=== PATIENT | female | born 1950 | race Hispanic/Latino ===

== ENCOUNTER 2018-11-04 19:29 | Observation (INO) | payer MEDICARE ==
[~2018-11-04] VITALS: Ht 154.9 cm; Wt 73.9 kg
--- OUTSIDE RECORDS SUMMARY | 2018-11-04 19:32 | XMS REPORT | Summary of Care ---
Author Author [facility] [place] Organization [facility] [place] Address Unknown Phone Unavailable Encounter HQ Soledad(FIN) [id number] Date(s): 10/19/18 - 10/19/18 [facility] [place] [address] [phone] Discharge Disposition: Home or Self Care Attending Physician: Maylin Mitchell MD Referring Physician: Maylin Mitchell MD Vital Signs No data available for this section Problem List Condition Effective Dates Status Health Status Informant Diabetes Active mellitus(Confirmed) Hypertension(Confirm Active ed) Hypothyroidism(Confi Active rmed) Allergies, Adverse Reactions, Alerts No Known Medication Allergies Medications No data available for this section Results No data available for this section Immunizations No data available for this section Procedures Procedure Date Related Diagnosis Body Site Status CABG x 3 - Coronary artery bypass grafts x 3 Completed Nerve operation Completed Social History Social History Type Response Smoking Status Current every day smoker; Exposure to Tobacco Smoke self; Cigarette Smoking Last 365 Days Yes; Reg Smoking Cessation Counseling Yes entered on: 09/14/15 Assessment and Plan No data available for this section
--- OUTSIDE RECORDS SUMMARY | 2018-11-04 19:32 | XMS REPORT | Continuity of Care Document ---
Author Author [facility] Organization [facility] Address Unknown Phone Unavailable Care Team Providers Care Track Superintendent Name Role Phone uControl Information Giftly Unavailable Unavailable Problems Problem Status Onset Date Classification Date Reported Comments Source Localized edema 02/02/2018 08/17/2018 [facility] R60.0 Active 01/26/2018 [facility] Encounter for screening mammogram for malignant neoplasm of breast 05/29/2017 09/01/2017 [facility] Discharge Diagnosis: Acute cystitis without hematuria 09/14/2015 09/17/2015 [facility] Discharge Diagnosis: Benign paroxysmal vertigo, right ear 09/14/2015 09/17/2015 [facility] Discharge Diagnosis: Dehydration 09/14/2015 09/17/2015 [facility] DIZZINESS Active 09/14/2015 [facility] Diabetes mellitus (disorder) Active Problem 10/21/2018 [facility] [place],[facility] Hypertensive disorder, systemic arterial (disorder) Active Problem 10/21/2018 [facility] [place],[facility] Hypothyroidism (disorder) Active Problem 10/21/2018 [facility] LOCALIZED EDEMA Active [facility] Medications Medication Details Route Status Patient Instructions Ordering Provider Order Date Source Sulfamethoxazole 800 MG / Trimethoprim 160 MG Oral Tablet [Bactrim] 1 tab, PO, BID, for UTI, X 3 day, # 6 tab, 0 Refill(s) Active 09/15/2015 [facility] meclizine 25 mg oral tablet 25 mg=1 tab, PO, TID, PRN dizziness, X 10 day, # 30 tab, 0 Refill(s) Active 09/15/2015 [facility] Saline Flush 0.9% 10 mL, Route: IVP, Drug Form: INJ, Dosing Weight 81.818, kg, PRN, PRN Line Flush, Start date: 09/14/15 17:00:00 CDT, Duration: 30 day, Stop date: 10/14/15 16:59:00 CDTNotes: (Same as: BD Posiflush) Inactive 09/14/2015 [facility] Allergies, Adverse Reactions, Alerts Substance Category Reaction Severity Reaction type Status Date Reported Comments Source No Known Medication Allergies Assertion Drug allergy [facility] [place] Immunizations No Data Provided for This Section Results Order Name Results Value Reference Range Date Interpretation Comments Source URINE AND STOOL UA Bacteria Occasional /HPF None Seen /HPF 09/15/2015 [facility] URINE AND STOOL UA Hyal Cast 2 0 - 2 09/15/2015 [facility] URINE AND STOOL UA Nitrite Negative (09/14/15 7:32 PM) Negative 09/15/2015 [facility] URINE AND STOOL UA Leuk Est Large *ABN* (09/14/15 7:32 PM) Negative 09/15/2015 [facility] URINE AND STOOL UA Sq Epi Occasional /LPF Few /LPF 09/15/2015 [facility] URINE AND STOOL UA WBC 11 0 - 5 09/15/2015 [facility] URINE AND STOOL UA RBC 7 0 - 2 09/15/2015 [facility] URINE AND STOOL UA Turbidity Slight *ABN* (09/14/15 7:32 PM) Clear 09/15/2015 [facility] URINE AND STOOL UA Spec Grav 1.016 <=1.030 09/15/2015 [facility] URINE AND STOOL UA Color Yellow *NA* (09/14/15 7:32 PM) Yellow 09/15/2015 [facility] URINE AND STOOL UA Urobilinogen 2.0 0.1 - 1.0 09/15/2015 [facility] URINE AND STOOL UA Bili Negative *NA* (09/14/15 7:32 PM) Negative 09/15/2015 [facility] URINE AND STOOL UA Blood Negative (09/14/15 7:32 PM) Negative 09/15/2015 [facility] URINE AND STOOL UA Ketones Negative mg/dL Negative mg/dL 09/15/2015 [facility] URINE AND STOOL UA Glucose Negative mg/dL Negative mg/dL 09/15/2015 [facility] URINE AND STOOL UA Protein Negative mg/dL Negative mg/dL 09/15/2015 [facility] URINE AND STOOL UA pH 5.0 5.0 - 8.0 09/15/2015 [facility] CARDIAC ENZYMES CK MB Index 1.5 0.0 - 2.5 09/14/2015 [facility] CARDIAC ENZYMES Troponin-I <0.02 0.00 - 0.40 09/14/2015 [facility] CARDIAC ENZYMES Total CK 96 12 - 191 09/14/2015 [facility] CARDIAC ENZYMES CK MB 1.4 0.5 - 3.6 09/14/2015 [facility] CHEM PANEL ALT 25 0 - 65 09/14/2015 [facility] CHEM PANEL AST 19 0 - 37 09/14/2015 [facility] CHEM PANEL Globulin 3.4 2.0 - 4.0 09/14/2015 [facility] CHEM PANEL AGAP 12.5 10.0 - 20.0 09/14/2015 [facility] CHEM PANEL B/C Ratio 25 6 - 25 09/14/2015 [facility] CHEM PANEL Bili Total 0.4 0.2 - 1.3 09/14/2015 [facility] CHEM PANEL A/G Ratio 1.1 0.7 - 1.6 09/14/2015 [facility] CHEM PANEL eGFR 36 09/14/2015 Result Comment: The eGFR is calculated using the CKD-EPI formula. In most young, healthy individuals the eGFR will be >90 mL/min/1.73m2. The eGFR declines with age. An eGFR of 60-89 may be normal in some populations, particularly the elderly, for whom the CKD-EPI formula has not been extensively validated. Use of the eGFR is not recommended in the following populations:

Individuals with unstable creatinine concentrations, including patients and those with serious co-morbid conditions.

Patients with extremes in muscle mass or diet.

The data above are obtained from the National Kidney Disease Education Program (NKDEP) which additionally recommends that when the eGFR is used in patients with extremes of body mass index for purposes of drug dosing, the eGFR should be multiplied by the estimated BMI. [facility] CHEM PANEL Albumin Lvl 3.6 3.5 - 5.0 09/14/2015 [facility] CHEM PANEL Alk Phos 133 39 - 136 09/14/2015 [facility] CHEM PANEL Total Protein 7.0 6.4 - 8.4 09/14/2015 [facility] CHEM PANEL BUN 37 7 - 22 09/14/2015 [facility] CHEM PANEL Potassium Lvl 3.5 3.5 - 5.1 09/14/2015 [facility] CHEM PANEL Chloride Lvl 106 95 - 109 09/14/2015 [facility] CHEM PANEL Creatinine Lvl 1.50 0.50 - 1.40 09/14/2015 [facility] CHEM PANEL Sodium Lvl 140 135 - 145 09/14/2015 [facility] CHEM PANEL CO2 25 24 - 32 09/14/2015 [facility] CHEM PANEL Calcium Lvl 8.6 8.5 - 10.5 09/14/2015 [facility] CHEM PANEL Glucose Lvl 110 70 - 99 09/14/2015 [facility] HEMATOLOGY Eosinophils # 0.1 0.0 - 0.5 09/14/2015 [facility] HEMATOLOGY Lymphocytes # 2.8 1.0 - 5.5 09/14/2015 [facility] HEMATOLOGY Monocytes # 0.7 0.0 - 0.8 09/14/2015 [facility] HEMATOLOGY Segs-Bands # 5.7 1.5 - 8.1 09/14/2015 [facility] HEMATOLOGY Basophils 0.4 0.0 - 1.0 09/14/2015 [facility] HEMATOLOGY Monocytes 7.9 2.0 - 12.0 09/14/2015 [facility] HEMATOLOGY Eosinophils 1.3 0.0 - 4.0 09/14/2015 [facility] HEMATOLOGY Lymphocytes 30.0 20.0 - 40.0 09/14/2015 [facility] HEMATOLOGY Segs 60.4 45.0 - 75.0 09/14/2015 [facility] HEMATOLOGY PTT 30.3 22.9 - 35.8 09/14/2015 [facility] HEMATOLOGY MPV 9.3 7.4 - 10.4 09/14/2015 [facility] HEMATOLOGY MCV 88.0 80.0 - 98.0 09/14/2015 [facility] HEMATOLOGY MCH 29.1 27.0 - 31.0 09/14/2015 [facility] HEMATOLOGY Platelet 234 133 - 450 09/14/2015 [facility] MCHC 33.1 32.0 - 36.0 09/14/2015 [facility] HEMATOLOGY RDW 14.4 11.5 - 14.5 09/14/2015 [facility] HEMATOLOGY WBC 9.4 3.7 - 10.4 09/14/2015 [facility] HEMATOLOGY Hgb 13.4 12.0 - 16.0 09/14/2015 [facility] HEMATOLOGY Hct 40.5 36.0 - 48.0 09/14/2015 [facility] HEMATOLOGY RBC 4.60 4.20 - 5.40 09/14/2015 [facility] HEMATOLOGY PT 14.6 12.0 - 14.7 09/14/2015 [facility] HEMATOLOGY INR 1.11 0.85 - 1.17 09/14/2015 [facility] Pathology Reports No Data Provided for This Section Diagnostic Reports Report Value Date Source Ext Lower Arterial bilat w pressure US PROCEDURE: Bilateral lower extremity arterial doppler. INDICATION: R60.0 localized edema. Lower extremity pain, left greater than right. Current history of smoking. Hypertension, diabetes, myocardial infarct, hyperlipidemia, CABG COMPARISON: None. FINDINGS: RIGHT: Common femoral: Triphasic. Superficial femoral: Triphasic. Popliteal: Triphasic. Posterior tibial: Triphasic. Dorsalis pedis: Triphasic. Pulsatile arterial Doppler waveform identified in the right great toe. LEFT: Common femoral: Triphasic. Superficial femoral: Triphasic. Popliteal: Triphasic. Posterior tibial: Triphasic. Dorsalis pedis: Triphasic. Very low amplitude pulsatile arterial waveform identified in the left great toe. Right ankle/brachial index: 1.0. Left ankle/brachial index: 1.0. IMPRESSION: 1. Low amplitude pulsatile arterial waveform in the left great toe. Possible small vessel distal peripheral vascular disease within the left great toe. 2. Otherwise, no evidence for hemodynamically significant peripheral vascular disease. SL: [id number] 01/27/2018 [facility] Breast Mammo Scrn LARISSA incl CAD MA BILATERAL DIGITAL SCREENING MAMMOGRAM WITH CAD: 05/26/2017 CLINICAL: Routine/Z12.31. Current study was evaluated with a Computer Aided Detection (CAD) system. COMPARISON:No prior exams were available for comparison. TECHNIQUE: Mammographic views were obtained using digital acquisition. Current study was also evaluated with a Computer Aided Detection (CAD) system. FINDINGS: There are scattered fibroglandular densities in both breasts. Bilateral post-reduction changes are noted. There are benign appearing calcifications in both breasts. No significant masses, calcifications, or other findings are seen in either breast. IMPRESSION: BENIGN RECOMMENDATION:There is no mammographic evidence of malignancy. A 1 year screening mammogram is recommended.(05/27/2018) This exam was interpreted at [id number] for DALIA Bowman 15. Professional services are provided by the [facility]. Jamar villanueva/rolanda:05/26/2017 14:14:49 Housemaid(s): RT Justus(R)(M), [facility] letter sent: BI-RADS 1/2 Mammogram BI-RADS: 2 Benign 05/26/2017 [facility] [place] Chest 1view DX Study: Chest 1view DX 09/14/2015 5:00 PM CDT Patient Name: SERVANDO GIANG MR: [id number] : 1950; Age: 65 years y/o Female Ordering Physician: Virginia Moseley Clinical Indication: Syncope. Dizziness. Comparison: None FINDINGS LUNGS: The hyperinflated lungs are clear consolidation, pleural effusion, and pneumothorax. HEART AND MEDIASTINUM: Heart size near upper limits of normal status post median sternotomy. LINES: None. OSSEOUS STRUCTURES: No fracture, dislocation, or suspicious focal osseous lesion. Cervical fusion. OTHER: None. IMPRESSION: 1. No acute abnormality as above discussed. SL: TPAINTER-PC 09/14/2015 [facility] Consultation Notes No Data Provided for This Section Discharge Summaries No Data Provided for This Section History and Physicals No Data Provided for This Section Vital Signs Vital Sign Value Date Comments Source Systolic (mm Hg) 148 09/15/2015 [facility] Diastolic (mm Hg) 53 09/15/2015 [facility] Temperature Oral (F) 98 F 09/15/2015 [facility] Respitory Rate 18 09/15/2015 [facility] Systolic (mm Hg) 102 09/14/2015 [facility] Diastolic (mm Hg) 37 09/14/2015 [facility] Respitory Rate 16 09/14/2015 [facility] Systolic (mm Hg) 102 09/14/2015 [facility] Diastolic (mm Hg) 68 09/14/2015 [facility] Respitory Rate 20 09/14/2015 [facility] Heart Rate 71 09/14/2015 [facility] Weight 81.818 09/14/2015 [facility] BMI Calculated 34.08 09/14/2015 [facility] Height 154.94 cm 09/14/2015 [facility] Temperature Oral (F) 97.6 F 09/14/2015 [facility] Encounters Location Location Details Encounter Type Encounter Number Reason For Visit Attending Provider ADM Date DC Date Status Source [facility] [id number] Rich Marinelli 09/14/2015 09/15/2015 [facility] [place] [facility] [id number] Maylin Almodovar 05/26/2017 05/27/2017 [facility] [id number] Maylin Mitchell 01/27/2018 01/28/2018 [facility] [place] Out[facility] D[facility] [id number] Maylin Mitchell 10/19/2018 10/20/2018 BOYD Floyd Procedures Procedure Code Date Perfomer Comments Source CABG x 3 - Coronary artery bypass grafts x 3 [id number] BOYD Graves, BOYD Floyd,[facility] Nerve operation [id number] BOYD Graves, BOYD Floyd,[facility] Assessment and Plan No Data Provided for This Section Plan of Care No Data Provided for This Section Social History Social History Date Source Social History TypeResponse Smoking Status Current every day smoker; Exposure to Tobacco Smoke self; Cigarette Smoking Last 365 Days Yes; Reg Smoking Cessation Counseling Yes entered on: 09/14/15 09/14/2015 [facility] Social History TypeResponse Smoking Status Current every day smoker; Exposure to Tobacco Smoke self; Cigarette Smoking Last 365 Days Yes; Reg Smoking Cessation Counseling Yes entered on: 09/14/15 09/14/2015 BOYD Graves Social History TypeResponse Smoking Status Current every day smoker; Exposure to Tobacco Smoke self; Cigarette Smoking Last 365 Days Yes; Reg Smoking Cessation Counseling Yes entered on: 09/14/15 09/14/2015 BOYD Floyd Family History No Data Provided for This Section Advance Directives No Data Provided for This Section Functional Status No Data Provided for This Section
--- OUTSIDE RECORDS SUMMARY | 2018-11-04 19:32 | XMS REPORT | Summary of Care ---
Author Author [facility] [place] [place] Address Unknown Phone Unavailable Encounter HQ Deidre_cassi(FIN) [id number] Date(s): 05/26/17 - 05/26/17 [facility] Outpatient Imaging [place] [address] [place], [place] [address]- [phone] Encounter Diagnosis Encounter for screening mammogram for malignant neoplasm of breast (Final) - 05/28/17 Discharge Disposition: Home or Self Care Attending Physician: Maylin Almodovar MD Vital Signs No data available for this section Problem List Condition Effective Dates Status Health Status Informant Diabetes Active mellitus(Confirmed) Hypertension(Confirm Active ed) Hypothyroidism(Confi Active rmed) Allergies, Adverse Reactions, Alerts Substance Reaction Severity Status NKDA Active Medications No data available for this section [...]
--- OUTSIDE RECORDS SUMMARY | 2018-11-04 19:32 | XMS REPORT | Summary of Care ---
Author Author [facility] Organization [facility] Address Unknown Phone Unavailable Encounter SILVANA Rowe(KIMBERLY) [id number] Date(s): 09/14/15 - 09/14/15 [facility] [address] [place] [address]- Discharge Diagnosis: Acute cystitis without hematuria Discharge Diagnosis: Benign paroxysmal vertigo, right ear Discharge Diagnosis: Dehydration Discharge Disposition: Home Attending Physician: Rich Marinelli MD PHD Vital Signs 1 2 3 Most recent to oldest [Reference Range]: 154.94 cm (09/14/15 4:50 PM) Height 98 DegF (09/14/15 8:00 PM) 97.6 DegF (09/14/15 4:50 PM) Temperature Oral [96.4-99.1 DegF] 148/53 mmHg *HI* (09/14/15 8:00 PM) 102/37 mmHg (09/14/15 6:50 PM) 102/68 mmHg (09/14/15 5:30 PM) Blood Pressure [90-140/60-90 mmHg] 18 BRMIN (09/14/15 8:00 PM) 16 BRMIN (09/14/15 6:50 PM) 20 BRMIN (09/14/15 5:30 PM) Respiratory Rate [14-20 BRMIN] 71 bpm (09/14/15 4:50 PM) Peripheral Pulse Rate [60-100 bpm] 81.818 kg (09/14/15 4:50 PM) Weight 34.08 m2 (09/14/15 4:50 PM) Body Mass Index Problem List Condition Effective Dates Status Health Status Informant Diabetes Active mellitus(Confirmed) Hypertension(Confirm Active ed) Hypothyroidism(Confi Active rmed) Allergies, Adverse Reactions, Alerts Substance Reaction Severity Status NKDA Active Medications Bactrim DS 800 mg- 160 mg oral tablet 1 tab, PO, BID, for UTI, X 3 day, # 6 tab, 0 Refill(s) Start Date: 09/14/15 Stop Date: 09/17/15 Status: Ordered meclizine 25 mg oral tablet 25 mg=1 tab, PO, TID, PRN dizziness, X 10 day, # 30 tab, 0 Refill(s) Start Date: 09/14/15 Stop Date: 09/24/15 Status: Ordered Saline Flush 0.9% 10 mL, Route: IVP, Drug Form: INJ, Dosing Weight 81.818, kg, PRN, PRN Line Flush , Start date: 09/14/15 17:00:00 CDT, Duration: 30 day, Stop date: 10/14/15 16:59 :00 CDT Notes: (Same as: BD Posiflush) Start Date: 09/14/15 Stop Date: 09/14/15 Status: Discontinued Results ELECTROLYTES Most recent to 1 oldest [Reference Range]: Sodium Lvl [135-145 140 mEq/L mEq/L] (09/14/15 5:35 PM) Potassium Lvl 3.5 mEq/L [3.5-5.1 mEq/L] (09/14/15 5:35 PM) Chloride Lvl [95-109 106 mEq/L mEq/L] (09/14/15 5:35 PM) CO2 [24-32 mEq/L] 25 mEq/L (09/14/15 5:35 PM) AGAP [10.0-20.0 12.5 mEq/L mEq/L] (09/14/15 5:35 PM) CHEM PANEL Most recent to 1 oldest [Reference Range]: Creatinine Lvl 1.50 mg/dL [0.50-1.40 mg/dL] *HI* (09/14/15 5:35 PM) eGFR 36 mL/min/1.73m2 1 *NA* (09/14/15 5:35 PM) BUN [7-22 mg/dL] 37 mg/dL *HI* (09/14/15 5:35 PM) B/C Ratio [6-25] 25 (09/14/15 5:35 PM) Glucose Lvl [70-99 110 mg/dL mg/dL] *HI* (09/14/15 5:35 PM) Total Protein 7.0 g/dL [6.4-8.4 g/dL] (09/14/15 5:35 PM) Albumin Lvl [3.5-5.0 3.6 g/dL g/dL] (09/14/15 5:35 PM) Globulin [2.0-4.0 3.4 g/dL g/dL] (09/14/15 5:35 PM) A/G Ratio [0.7-1.6] 1.1 (09/14/15 5:35 PM) Calcium Lvl 8.6 mg/dL [8.5-10.5 mg/dL] (09/14/15 5:35 PM) ALT [0-65 unit/L] 25 unit/L (09/14/15 5:35 PM) AST [0-37 unit/L] 19 unit/L (09/14/15 5:35 PM) Alk Phos [39-136 133 unit/L unit/L] (09/14/15 5:35 PM) Bili Total [0.2-1.3 0.4 mg/dL mg/dL] (09/14/15 5:35 PM) 1Result Comment: The eGFR is calculated using the [...] from the National Kidney Disease Education Program ( NKDEP) which additionally recommends that when the eGFR is used in patients with extremes of body mass index for purposes of drug dosing, the eGFR should be mul tiplied by the estimated BMI. CARDIAC ENZYMES Most recent to 1 oldest [Reference Range]: Total CK [12-191 96 unit/L unit/L] (09/14/15 5:35 PM) CK MB [0.5-3.6 1.4 ng/mL ng/mL] (09/14/15 5:35 PM) CK MB Index 1.5 [0.0-2.5] (09/14/15 5:35 PM) Troponin-I <0.02 ng/mL [0.00-0.40 ng/mL] (09/14/15 5:35 PM) URINE AND STOOL Most recent to 1 oldest [Reference Range]: UA Turbidity [Clear] Slight *ABN* (09/14/15 7:32 PM) UA Color [Yellow] Yellow *NA* (09/14/15 7:32 PM) UA pH [5.0-8.0] 5.0 (09/14/15 7:32 PM) UA Spec Grav 1.016 [<=1.030] (09/14/15 7:32 PM) UA Glucose [Negative Negative mg/dL mg/dL] *NA* (09/14/15 7:32 PM) UA Blood [Negative] Negative (09/14/15 7:32 PM) UA Ketones [Negative Negative mg/dL mg/dL] *NA* (09/14/15 7:32 PM) UA Protein [Negative Negative mg/dL mg/dL] (09/14/15 7:32 PM) UA Urobilinogen 2.0 mg/dL [0.1-1.0 mg/dL] *HI* (09/14/15 7:32 PM) UA Bili [Negative] Negative *NA* (09/14/15 7:32 PM) UA Leuk Est Large [Negative] *ABN* (09/14/15 7:32 PM) UA Nitrite Negative [Negative] (09/14/15 7:32 PM) UA WBC [0-5 /HPF] 11 /HPF *HI* (09/14/15 7:32 PM) UA RBC [0-2 /HPF] 7 /HPF *HI* (09/14/15 7:32 PM) UA Bacteria [None Occasional /HPF Seen /HPF] *NA* (09/14/15 7:32 PM) UA Sq Epi [Few /LPF] Occasional /LPF *NA* (09/14/15 7:32 PM) UA Hyal Cast [0-2 2 /LPF /LPF] (09/14/15 7:32 PM) HEMATOLOGY Most recent to 1 oldest [Reference Range]: WBC [3.7-10.4 K/CMM] 9.4 K/CMM (09/14/15 5:35 PM) RBC [4.20-5.40 4.60 M/CMM M/CMM] (09/14/15 5:35 PM) Hgb [12.0-16.0 g/dL] 13.4 g/dL (09/14/15 5:35 PM) Hct [36.0-48.0 %] 40.5 % (09/14/15 5:35 PM) MCV [80.0-98.0 fL] 88.0 fL (09/14/15 5:35 PM) MCH [27.0-31.0 pg] 29.1 pg (09/14/15 5:35 PM) MCHC [32.0-36.0 33.1 g/dL g/dL] (09/14/15 5:35 PM) RDW [11.5-14.5 %] 14.4 % (09/14/15 5:35 PM) Platelet [133-450 234 K/CMM K/CMM] (09/14/15 5:35 PM) MPV [7.4-10.4 fL] 9.3 fL (09/14/15 5:35 PM) Segs [45.0-75.0 %] 60.4 % (09/14/15 5:35 PM) Lymphocytes 30.0 % [20.0-40.0 %] (09/14/15 5:35 PM) Monocytes [2.0-12.0 7.9 % %] (09/14/15 5:35 PM) Eosinophils [0.0-4.0 1.3 % %] (09/14/15 5:35 PM) Basophils [0.0-1.0 0.4 % %] (09/14/15 5:35 PM) Segs-Bands # 5.7 K/CMM [1.5-8.1 K/CMM] (09/14/15 5:35 PM) Lymphocytes # 2.8 K/CMM [1.0-5.5 K/CMM] (09/14/15 5:35 PM) Monocytes # [0.0-0.8 0.7 K/CMM K/CMM] (09/14/15 5:35 PM) Eosinophils # 0.1 K/CMM [0.0-0.5 K/CMM] (09/14/15 5:35 PM) PT [12.0-14.7 14.6 seconds seconds] (09/14/15 5:35 PM) INR [0.85-1.17] 1.11 (09/14/15 5:35 PM) PTT [22.9-35.8 30.3 seconds seconds] (09/14/15 5:35 PM) Immunizations No data available for this section Procedures Procedure Date Related Diagnosis Body Site CABG x 3 - Coronary artery bypass grafts x 3 Nerve operation Social History Social History Type Response Smoking Status Never smoker; Exposure to Tobacco Smoke None; Cigarette Smoking Last 365 Days No; Reg Smoking Cessation Counseling No Assessment and Plan No data available for this section
--- OUTSIDE RECORDS SUMMARY | 2018-11-04 19:32 | XMS REPORT | Summary of Care ---
Author Author [facility] Organization [facility] Address Unknown Phone Unavailable Encounter HQ Deidre_cassi(FIN) [phone] Date(s): 01/27/18 - 01/27/18 [facility] [address] [place] [address]- [phone] Encounter Diagnosis Localized edema (Final) - 02/01/18 Discharge Disposition: Home or Self Care Attending Physician: Maylin Mitchell MD Admitting Physician: Maylin Mitchell MD Referring Physician: Maylin [...]
[2018-11-04] MEDS ORDERED: SODIUM CHLORIDE 0.9% 1000ML 1,000 ML IV STA (19:44)
[2018-11-04] MEDS ORDERED: FAMOTIDINE 20 MG/2 ML VIAL IV ONE (19:45)
[2018-11-04] MEDS ORDERED: ONDANSETRON HCL INJ 2MG/ML 2ML 2 MG/ML VIAL IV ONE (19:45)
[2018-11-04] MEDS ORDERED: SODIUM CHLORIDE 0.9% 1000ML 1,000 ML ONE (19:51)
[2018-11-04] MEDS ORDERED: SODIUM CHLORIDE 0.9% 50ML 0 ML ONE (20:05)
[2018-11-04] MEDS ORDERED: IOPAMIDOL 370 MG/ML 200 ML INFUS..BTL INJ ONE (20:06)
--- NOTE | 2018-11-04 21:24 | Diagnostic Imaging Report ---
EXAM: CT Abdomen and Pelvis WITHOUT contrast INDICATION: Abdominal pain, nausea, vomiting COMPARISON: None. TECHNIQUE: Abdomen and pelvis were scanned utilizing a multidetector helical scanner from the lung base to the pubic symphysis without administration of IV contrast. Absence of intravenous contrast decreases sensitivity for detection of focal lesions and vascular pathology. Coronal and sagittal reformations were obtained. Routine protocol was performed. IV CONTRAST: None ORAL CONTRAST: None COMPLICATIONS: None RADIATION DOSE: Total DLP: 736 mGy*cm Estimated effective dose: (DLP x 0.015 x size factor) mSv CTDIvol has been reviewed. It is below the limits set by the Radiation Protocol Committee (RPC). Dose modulation, iterative reconstruction, and/or weight based adjustment of the mA/kV was utilized to reduce the radiation dose to as low as reasonably achievable. FINDINGS: LINES and TUBES: None. LOWER THORAX: Left coronary artery calcifications. HEPATOBILIARY: No focal hepatic lesions. No biliary ductal dilation. GALLBLADDER: No radio-opaque stones or sludge. No wall thickening. SPLEEN: No splenomegaly. PANCREAS: No focal masses or ductal dilatation. ADRENALS: No adrenal nodules KIDNEYS/URETERS: No hydronephrosis. There are 2 round cystic lesions in the right kidney, one in the interpolar parenchyma measures 3 cm, the other in the inferior pole parenchyma in measures 1.5 cm. No stones. GI TRACT: No abnormal distention, wall thickening, or evidence of bowel obstruction. Appendix is normal. PELVIC ORGANS/BLADDER: Unremarkable. LYMPH NODES: No lymphadenopathy. VESSELS: There is mild atherosclerotic disease in the aorta and major arterial branches. PERITONEUM / RETROPERITONEUM: No free air or fluid. BONES: Unremarkable. SOFT TISSUES: Unremarkable. IMPRESSION: 1. Two round cystic lesions measure up to 3 mm in the right kidney, incompletely characterized on this noncontrast CT. A nonemergent renal ultrasound could further characterize these findings. 2. Left coronary artery calcific atherosclerosis. Signed by: Tyrone Gama DO on 11/04/2018 9:21 PM
[2018-11-04] MEDS ORDERED: MORPHINE SULFATE 2 MG/ML SYR 1ML IV PRN (21:30)
[2018-11-04] MEDS ORDERED: ZOLPIDEM TARTRATE 5 MG TAB PO PRN (21:30)
[2018-11-04] MEDS ORDERED: ONDANSETRON HCL INJ 2MG/ML 2ML 2 MG/ML VIAL IV PRN (21:30)
--- OUTSIDE RECORDS SUMMARY | 2018-11-04 21:47 | XMS REPORT ---
Author Author [facility] Address Unknown Phone Unavailable Care Team Providers Care Radio Television Announcer Name Role Phone Shankar NORWODO Unavailable Unavailable Problems This patient has no known problems. Allergies, Adverse Reactions, Alerts This patient has no known allergies or adverse reactions. Medications This patient has no known medications. Results Test Description Test Time Test Comments Text Results Atomic Results Result Comments CT ABD/PEL WO CONTRAST-HOPD 2018-11-04 21:04:00 [place] [address] Patient Name: SERVANDO GIANG MR #: [id number] : 1950 Age/Sex: 68/F Req #: [id number] Adm Physician: Ordered by: SAE NORWOOD MD Report #: [id number] Location: [facility] Room/Bed: Procedure: [id number] HOPD/CT ABD/PEL WO CONTRAST-HOPD Exam Date: 11/04/18 Exam Time: 2029 REPORT STATUS: Signed EXAM: CT Abdomen and Pelvis WITHOUT contrast INDICATION: Abdominal pain, nausea, vomiting COMPARISON: None. TECHNIQUE: Abdomen and pelvis were scanned utilizing a multidetector helical scanner from the lung base to the pubic symphysis without administration of IV contrast. Absence of intravenous contrast decreases sensitivity for detection of focal lesions and vascular pathology. Coronal and sagittal reformations were obtain ed. Routine protocol was performed. IV CONTRAST: None ORAL CONTRAST: None COMPLICATIONS: None RADIATION DOSE: Total DLP: 736 mGy*cm Estimated effective dose: (DLP x 0.015 x size factor) mSv CTDIvol has been reviewed. It is below the limits set by the Radiation Protocol Committee (RPC). Dose modulation, iterative reconstruction, and/or weight based adjustment of the mA/kV was utilized to reduce the radiation dose to as low as reasonably achievable. FINDINGS: LINES and TUBES: None. LOWER THORAX: Left coronary artery calcifications. HEPATOBILIARY: No focal hepatic lesions. No biliary ductal dilation. GALLBLADDER: No radio-opaque stones or sludge. No wall thickening. SPLEEN: No splenomegaly. PANCREAS: No focal masses or ductal dilatation. ADRENALS: No adrenal nodules KIDNEYS/URETERS: No hydronephrosis. There are 2 round cystic lesions in the right kidney, one in the interpolar parenchyma measures 3 cm, the other in the inferior pole parenchyma in measures 1.5 cm. No stones. GI TRACT: No abnormal distention, wall thickening, or evidence of bowel obstruction. Appendix is normal. PELVIC ORGANS/BLADDER: Unremarkable. LYMPH NODES: No lymphadenopathy. VESSELS: There is mild atherosclerotic disease in the aorta and major arterial branches. PERITONEUM / RETROPERITONEUM: No free air or fluid. BONES: Unremarkable. SOFT TISSUES: Unremarkable. IMPRESSION: 1. Two round cystic lesions measure up to 3 mm in th e right kidney, incompletely characterized on this noncontrast CT. A nonemergent renal ultrasound could further characterize these findings. 2. Left coronary artery calcific atherosclerosis. Signed by: Tyrone Gama DO on 11/04/2018 9:21 PM Dictated By: TYRONE GAMA DO 20 Transcribed By: SUNSHINE on 11/04/182120 COPY TO: SAE NORWOOD MD
--- OUTSIDE RECORDS SUMMARY | 2018-11-04 21:47 | XMS REPORT | Continuity of Care Document ---
Author Author [facility] Organization [facility] Address Unknown Phone Unavailable Care Team Providers Care Field Coordinator Name Role Phone [employer] Information [employer] Unavailable Unavailable Problems Problem Status Onset Date Classification Date Reported Comments Source Localized edema 02/02/2018 08/17/2018 [facility] R60.0 Active 01/26/2018 [facility] Encounter for screening mammogram for malignant neoplasm of breast 05/29/2017 09/01/2017 [facility] Discharge Diagnosis: Acute cystitis without hematuria 09/14/2015 09/17/2015 [facility] Discharge Diagnosis: Benign paroxysmal vertigo, right ear 09/14/2015 09/17/2015 [facility] Discharge Diagnosis: Dehydration 09/14/2015 09/17/2015 [facility] DIZZINESS Active 09/14/2015 [facility] Diabetes mellitus (disorder) Active Problem [facility] [place] [place] Hypertensive disorder, systemic arterial (disorder) Active Problem 10/21/2018 [facility] [place],[facility] Hypothyroidism (disorder) Active Problem 10/21/2018 [facility] LOCALIZED EDEMA Active [facility] Medications Medication Details Route Status Patient Instructions Ordering Provider Order Date Source Sulfamethoxazole 800 MG / Trimethoprim 160 MG Oral Tablet [Bactrim] 1 tab, PO, BID, for UTI, X 3 day, # 6 tab, 0 Refill(s) Active 09/15/2015 [facility] meclizine 25 mg oral tablet 25 mg=1 tab, PO, TID, PRN dizziness, X 10 day, # 30 tab, 0 Refill(s) Active 09/15/2015 [facility] Saline Flush 0.9% 10 mL, Route: IVP, Drug Form: INJ, Dosing Weight 81.818, kg, PRN, PRN Line Flush, Start date: 09/14/15 17:00:00 CDT, Duration: 30 day, Stop date: 10/14/15 16:59:00 CDTNotes: (Same as: BD Posiflush) Inactive 09/14/2015 [facility] Allergies, Adverse Reactions, Alerts Substance Category Reaction Severity Reaction type Status Date Reported Comments Source No Known Medication Allergies Assertion Drug allergy [facility] [place] Immunizations No Data Provided for This Section Results Order Name Results Value Reference Range Date Interpretation Comments Source URINE AND STOOL UA Bacteria Occasional /HPF None Seen /HPF 09/15/2015 [facility] URINE AND STOOL UA Hyal Cast 2 0 - 2 09/15/2015 [facility] URINE AND STOOL UA Nitrite Negative (09/14/15 7:32 PM) Negative 09/15/2015 [facility] URINE AND STOOL UA Leuk Est Large *ABN* (09/14/15 7:32 PM) Negative 09/15/2015 [facility] URINE AND STOOL UA Sq Epi Occasional /LPF Few /LPF 09/15/2015 [facility] URINE AND STOOL UA WBC 11 0 - 5 09/15/2015 [facility] URINE AND STOOL UA RBC 7 0 - 2 09/15/2015 [facility] URINE AND STOOL UA Turbidity Slight *ABN* (09/14/15 7:32 PM) Clear 09/15/2015 [facility] URINE AND STOOL UA Spec Grav 1.016 <=1.030 09/15/2015 [facility] URINE AND STOOL UA Color Yellow *NA* (09/14/15 7:32 PM) Yellow 09/15/2015 [facility] URINE AND STOOL UA Urobilinogen 2.0 0.1 - 1.0 09/15/2015 [facility] URINE AND STOOL UA Bili Negative *NA* (09/14/15 7:32 PM) Negative 09/15/2015 [facility] URINE AND STOOL UA Blood Negative (09/14/15 7:32 PM) Negative 09/15/2015 [facility] URINE AND STOOL UA Ketones Negative mg/dL Negative mg/dL 09/15/2015 [facility] URINE AND STOOL UA Glucose Negative mg/dL Negative mg/dL 09/15/2015 [facility] URINE AND STOOL UA Protein Negative mg/dL Negative mg/dL 09/15/2015 [facility] URINE AND STOOL UA pH 5.0 5.0 - 8.0 09/15/2015 [facility] CARDIAC ENZYMES CK MB Index 1.5 0.0 - 2.5 09/14/2015 [facility] CARDIAC ENZYMES Troponin-I <0.02 0.00 - 0.40 09/14/2015 [facility] CARDIAC ENZYMES Total CK 96 12 - 191 09/14/2015 [facility] CARDIAC ENZYMES CK MB 1.4 0.5 - 3.6 09/14/2015 [facility] CHEM PANEL ALT 25 0 - 65 09/14/2015 [facility] CHEM PANEL AST 19 0 - 37 09/14/2015 [facility] CHEM PANEL Globulin 3.4 2.0 - 4.0 09/14/2015 [facility] CHEM PANEL AGAP 12.5 10.0 - 20.0 09/14/2015 [facility] CHEM PANEL B/C Ratio 25 6 - 25 09/14/2015 [facility] CHEM PANEL Bili Total 0.4 0.2 - 1.3 09/14/2015 [facility] CHEM PANEL A/G Ratio 1.1 0.7 - 1.6 09/14/2015 [facility] CHEM PANEL eGFR 36 09/14/2015 Result [...] should be multiplied by the estimated BMI. [facility] CHEM PANEL Albumin Lvl 3.6 3.5 - 5.0 09/14/2015 [facility] CHEM PANEL Alk Phos 133 39 - 136 09/14/2015 [facility] CHEM PANEL Total Protein 7.0 6.4 - 8.4 09/14/2015 [facility] CHEM PANEL BUN 37 7 - 22 09/14/2015 [facility] CHEM PANEL Potassium Lvl 3.5 3.5 - 5.1 09/14/2015 [facility] CHEM PANEL Chloride Lvl 106 95 - 109 09/14/2015 [facility] CHEM PANEL Creatinine Lvl 1.50 0.50 - 1.40 09/14/2015 [facility] CHEM PANEL Sodium Lvl 140 135 - 145 09/14/2015 [facility] CHEM PANEL CO2 25 24 - 32 09/14/2015 [facility] CHEM PANEL Calcium Lvl 8.6 8.5 - 10.5 09/14/2015 [facility] CHEM PANEL Glucose Lvl 110 70 - 99 09/14/2015 [facility] HEMATOLOGY Eosinophils # 0.1 0.0 - 0.5 09/14/2015 [facility] HEMATOLOGY Lymphocytes # 2.8 1.0 - 5.5 09/14/2015 [facility] HEMATOLOGY Monocytes # 0.7 0.0 - 0.8 09/14/2015 [facility] HEMATOLOGY Segs-Bands # 5.7 1.5 - 8.1 09/14/2015 [facility] HEMATOLOGY Basophils 0.4 0.0 - 1.0 09/14/2015 [facility] HEMATOLOGY Monocytes 7.9 2.0 - 12.0 09/14/2015 [facility] HEMATOLOGY Eosinophils 1.3 0.0 - 4.0 09/14/2015 [facility] HEMATOLOGY Lymphocytes 30.0 20.0 - 40.0 09/14/2015 [facility] HEMATOLOGY Segs 60.4 45.0 - 75.0 09/14/2015 [facility] HEMATOLOGY PTT 30.3 22.9 - 35.8 09/14/2015 [facility] HEMATOLOGY MPV 9.3 7.4 - 10.4 09/14/2015 [facility] HEMATOLOGY MCV 88.0 80.0 - 98.0 09/14/2015 [facility] HEMATOLOGY MCH 29.1 27.0 - 31.0 09/14/2015 [facility] HEMATOLOGY Platelet 234 133 - 450 09/14/2015 [facility] MCHC 33.1 32.0 - 36.0 09/14/2015 [facility] HEMATOLOGY RDW 14.4 11.5 - 14.5 09/14/2015 [facility] HEMATOLOGY WBC 9.4 3.7 - 10.4 09/14/2015 [facility] HEMATOLOGY Hgb 13.4 12.0 - 16.0 09/14/2015 [facility] HEMATOLOGY Hct 40.5 36.0 - 48.0 09/14/2015 [facility] HEMATOLOGY RBC 4.60 4.20 - 5.40 09/14/2015 [facility] HEMATOLOGY PT 14.6 12.0 - 14.7 09/14/2015 [facility] HEMATOLOGY INR 1.11 0.85 - 1.17 09/14/2015 [facility] Pathology Reports No Data Provided for [...] for hemodynamically significant peripheral vascular disease. SL: [id number] 01/27/2018 [facility] Breast Mammo Scrn LARISSA incl CAD [...] is recommended.(05/27/2018) This exam was interpreted at [id number] for DALIA Bowman 15. Professional services are provided by the [facility]. Jamar villanueva/rolanda:05/26/2017 14:14:49 Instrument Repair Supervisor(s): RT Justus(R)(M), [facility] letter sent: BI-RADS 1/2 Mammogram BI-RADS: 2 Benign 05/26/[facility] [place] [facility] DX Study: Chest 1view DX 09/14/2015 5:00 PM CDT Patient Name: SERVANDO GIANG MR: [id number] : 1950; Age: 65 years y/o Female [...] abnormality as above discussed. SL: TPAINTER-PC 09/14/2015 [facility] Consultation Notes No Data Provided for This Section Discharge Summaries No Data Provided for This Section History and Physicals No Data Provided for This Section Vital Signs Vital Sign Value Date Comments Source Systolic (mm Hg) 148 09/15/2015 [facility] Diastolic (mm Hg) 53 09/15/2015 [facility] Temperature Oral (F) 98 F 09/15/2015 [facility] Respitory Rate 18 09/15/2015 [facility] Systolic (mm Hg) 102 09/14/2015 [facility] Diastolic (mm Hg) 37 09/14/2015 [facility] Respitory Rate 16 09/14/2015 [facility] Systolic (mm Hg) 102 09/14/2015 [facility] Diastolic (mm Hg) 68 09/14/2015 [facility] Respitory Rate 20 09/14/2015 [facility] Heart Rate 71 09/14/2015 [facility] Weight 81.818 09/14/2015 [facility] BMI Calculated 34.08 09/14/2015 [facility] Height 154.94 cm 09/14/2015 [facility] Temperature Oral (F) 97.6 F 09/14/2015 [facility] Encounters Location Location Details Encounter Type Encounter Number Reason For Visit Attending Provider ADM Date DC Date Status Source [facility] [id number] Rich Marinelli 09/14/2015 09/15/2015 [facility] [place] [facility] [id number] Maylin Almodovar 05/26/2017 05/27/2017 [facility] [id number] Maylin Mitchell 01/27/2018 01/28/2018 [facility] [place] [facility] [id number] Maylin Mitchell 10/19/2018 10/20/2018 [facility] Procedures Procedure Code Date Perfomer Comments Source CABG x 3 - Coronary artery bypass grafts x 3 [id number] BOYD Graves, BOYD [facility] Nerve operation [id number] BOYD Graves, BOYD Floyd,[facility] Assessment and Plan No Data Provided for This Section Plan of Care No Data Provided for This Section Social History Social History Date Source Social History TypeResponse Smoking Status Current every day smoker; Exposure to Tobacco Smoke self; Cigarette Smoking Last 365 Days Yes; Reg Smoking Cessation Counseling Yes entered on: 09/14/15 09/14/2015 [facility] Social History TypeResponse Smoking Status Current [...]
--- NOTE | 2018-11-04 22:19 | NUR ---
[facility] NOTIFIED OF TRANSFER, ETA 30 MINUTES GIVEN
--- NOTE | 2018-11-04 22:58 | NUR ---
Got report from Liseth, nurse from [facility]. patient arrived via stretcher. no distress noted. call light within reach
[2018-11-04 23:00] VITALS: BP 109/59
[2018-11-04] MEDS: SODIUM CHLORIDE 0.9% 1000ML 1,000 ML IV SCH (23:07)
[2018-11-04 23:30] VITALS: BP 109/59
[2018-11-05] VITALS (7 sets, daily range): BP systolic 137–165; BP diastolic 54–77
[2018-11-05] MEDS ORDERED: LEVAQUIN500 MG PO (00:51)
[2018-11-05] MEDS ORDERED: METOPROLOL SUCC25 MG (00:51)
[2018-11-05] MEDS ORDERED: IMODIUM2 MG PO (00:51)
[2018-11-05] MEDS ORDERED: OMEPRAZOLE40 MG PO (00:51)
[2018-11-05] MEDS ORDERED: ACETAMINOPHEN325 M1 PO (00:51)
[2018-11-05] MEDS ORDERED: LEVOTHYROXINE75 MCG PO (00:51)
[2018-11-05] MEDS ORDERED: PROAIR HFA INH8.5 GM (00:51)
[2018-11-05] MEDS ORDERED: VITAMIN D1000 UNI1 PO (00:51)
[2018-11-05] MEDS ORDERED: AFRIN30 ML (00:51)
[2018-11-05] MEDS ORDERED: ATORVASTATIN CA20 MG PO (00:51)
[2018-11-05] MEDS ORDERED: LYRICA50 MG PO (00:51)
[2018-11-05] MEDS ORDERED: TIZANIDINE HCL4 MG PO (00:51)
[2018-11-05] MEDS ORDERED: MICARDIS40 MG PO (00:51)
[2018-11-05] MEDS ORDERED: HYDROCODON-ACE1 EAC9 (00:51)
[2018-11-05] MEDS ORDERED: ESCITALOPRAM OX20 MG PO (00:51)
[2018-11-05] MEDS ORDERED: METFORMIN HCL500 MG PO (00:51)
[2018-11-05] MEDS ORDERED: ASPIRIN81 MG (00:54)
[2018-11-05 06:11] LABS: BASOPHILS % 0.2 % (0.0-1.0); EOSINOPHILS # (AUTO) 0.1 (0.0-0.4); EOSINOPHILS % 1.5 % (0.0-6.0); HEMOGLOBIN 11.3 g/dL (12.0-16.0); LYMPHOCYTES # (AUTO) 2.2 (1.0-3.2); LYMPHOCYTES % 41.2 % (18.0-39.1); MEAN CORPUSCULAR HEMOGLOBIN 29.7 pg (28-32); MEAN CORPUSCULAR HGB CONC 32.3 g/dL (31-35); MEAN CORPUSCULAR VOLUME 92.1 fL (81-99); MONOCYTES # (AUTO) 0.6 (0.2-0.8); MONOCYTES % 11.7 % (4.4-11.3); NEUTROPHILS # (AUTO) 2.4 (2.1-6.9); PLATELET COUNT 263 x10e3/uL (140-360); RED CELL DISTRIBUTION WIDTH 13.8 % (11.7-14.4)
[2018-11-05 06:26] LABS: ANION GAP 14.6 mmol/L (8-16); CALCIUM 8.8 mg/dL (8.4-10.2); CREATININE, SERUM 1.14 mg/dL (0.57-1.11); POTASSIUM 4.6 mmol/L (3.5-5.1)
[2018-11-05] MEDS ORDERED: NON-FORMULARY MEDICATION (Escitalopram Oxalate 20 MG) PO PRN (07:00)
[2018-11-05] MEDS ORDERED: PREGABALIN 50 MG CAP PO PRN (07:00)
--- NOTE | 2018-11-05 07:01 | NUR ---
H&P cc: abdominal pain HPI: 68yoF, PCP , developed abdominal pain, found to have acute gastroenteritis with n/V/D for 1 day. some chills; no fever. PMH: hypothyroidism, obesity, DM2, HTN, HLD, mood d/o, GERD, current smoker, CAD s/p CABG 2004 PShx:CABG 2004 Allergies; see emr Fh/SH; 1/4ppd cigs; meds; see MAR ROS: no f/cp/sob/skin rash/vision changes/tinnitus/hearing changes/VALLES v/s revd pe; tired appearing anicteric ns1s2 mod bs soft nd; minimal abdominal tenderness skin dry no e/t a&ox3; [facility] labs/meds; revd A/P: 68yoF Acute gastroenteritis-flagyl [place]- DM2 Obesity BI 30.8 HLD HTN Hypothyroidism Mood d/o CAD Current smoker PLAN IVF; IV abx hba1c/lipids resart home meds nicotine cessation counseling Prop: SCD/ppi Dispo: Boris Jeffries MD, PhD.
--- NOTE | 2018-11-05 07:11 | NUR ---
Gave report to oncoming nurse. call light within reach. patient in bed.
[2018-11-05 07:21] LABS: CHOL/HDL RATIO 3.1 (3.0-3.6)
[2018-11-05] MEDS ORDERED: ESCITALOPRAM OXALATE 10 MG TAB PO PRN (07:30)
[2018-11-05] MEDS ORDERED: ATORVASTATIN 20 MG TAB PO SCH (09:00)
[2018-11-05] MEDS: METOPROLOL SUCCINATE 25 MG TAB XL PO SCH (09:35)
[2018-11-05] MEDS: PANTOPRAZOLE SOD 40 MG TABEC PO SCH (09:35)
[2018-11-05] MEDS: METRONIDAZOLE 500MG/NS 100ML 100 ML IV SCH ×3 (09:35→23:46)
[2018-11-05] MEDS: SODIUM CHLORIDE 0.9% 1000ML 1,000 ML IV SCH (09:35)
[2018-11-05] MEDS: LEVOTHYROXINE SODIUM 75 MCG TAB PO SCH (09:35)
[2018-11-05] MEDS: TELMISARTAN 40 MG TAB PO SCH (09:35)
--- NOTE | 2018-11-05 10:51 | Diagnostic Imaging Report ---
EXAM: Renal Ultrasound INDICATION: Renal cyst versus mass COMPARISON: CT of the abdomen and pelvis performed 11/04/2018TECHNIQUE: Transverse and longitudinal images of the kidneys and bladder were obtained. FINDINGS: Right Kidney: Length: 10.7 cm Appearance: Normal echogenicity. Collecting system: No hydronephrosis Stones: None Cyst/Mass: 2 anechoic cysts are identified measuring 3.0 x 3.0 x 2.9 cm and 2.3 x 1.8 x 2.0 cm Left Kidney: Length: 9.6 cm Appearance: Normal echogenicity. Collecting system: No hydronephrosis Stones: None Cyst/Mass: There is a 1.6 x 1.3 x 1.7 cm anechoic cyst. Bladder: Normal IMPRESSION: Bilateral renal cysts. No renal mass identified. Signed by: Ayaz Rothman MD on 11/05/2018 10:47 AM
[2018-11-05] MEDS ORDERED: ATORVASTATIN 40 MG TAB PO SCH (21:00)
[2018-11-05] MEDS ORDERED: SODIUM CHLORIDE 0.9% 250ML 250 ML ONE (23:45)
[2018-11-06] VITALS (8 sets, daily range): BP systolic 159–187; BP diastolic 57–84
[2018-11-06] MEDS ORDERED: ZOFRAN4 MG PO (05:48)
[2018-11-06] MEDS ORDERED: FLAGYL500 MG PO (05:48)
[2018-11-06] MEDS: LEVOTHYROXINE SODIUM 75 MCG TAB PO SCH (06:24)
[2018-11-06 06:27] LABS: BASOPHILS % 0.3 % (0.0-1.0); EOSINOPHILS # (AUTO) 0.1 (0.0-0.4); EOSINOPHILS % 2.2 % (0.0-6.0); HEMATOCRIT 35.9 % (34.2-44.1); HEMOGLOBIN 11.7 g/dL (12.0-16.0); LYMPHOCYTES # (AUTO) 2.4 (1.0-3.2); MEAN CORPUSCULAR HEMOGLOBIN 29.8 pg (28-32); MEAN CORPUSCULAR HGB CONC 32.6 g/dL (31-35); MEAN CORPUSCULAR VOLUME 91.3 fL (81-99); MONOCYTES # (AUTO) 0.5 (0.2-0.8); MONOCYTES % 8.5 % (4.4-11.3); NEUTROPHILS # (AUTO) 2.9 (2.1-6.9); NEUTROPHILS % 48.8 % (38.7-80.0); PLATELET COUNT 245 x10e3/uL (140-360); RED BLOOD COUNT 3.93 x10e6/uL (3.6-5.1); RED CELL DISTRIBUTION WIDTH 13.7 % (11.7-14.4)
[2018-11-06 06:47] LABS: ANION GAP 14.5 mmol/L (8-16); CALCIUM 9.1 mg/dL (8.4-10.2); CARBON DIOXIDE 23 mmol/L (22-29); CHLORIDE 111 mmol/L (98-107); CREATININE, SERUM 0.81 mg/dL (0.57-1.11); EST GLOMERULAR FILTRATION RATE > 60 ML/MIN (60-); GLUCOSE 88 mg/dL (74-118); POTASSIUM 4.5 mmol/L (3.5-5.1); SODIUM 144 mmol/L (136-145)
[2018-11-06 07:03] LABS: BLOOD UREA NITROGEN 18 mg/dL (7-26); BUN/CREATININE RATIO 21 (6-25)
--- NOTE | 2018-11-06 07:07 | NUR ---
pending labs for possible dc
[2018-11-06 07:38] LABS: MAGNESIUM 1.6 MG/DL (1.3-2.1); PHOSPHORUS 3.1 MG/DL (2.3-4.7)
[2018-11-06] MEDS: PANTOPRAZOLE SOD 40 MG TABEC PO SCH (08:40)
[2018-11-06] MEDS: TELMISARTAN 40 MG TAB PO SCH (08:40)
[2018-11-06] MEDS: METRONIDAZOLE 500MG/NS 100ML 100 ML IV SCH ×2 (08:40→15:46)
[2018-11-06] MEDS: METOPROLOL SUCCINATE 25 MG TAB XL PO SCH (08:40)
--- NOTE | 2018-11-06 08:54 | NUR ---
pt elevated htn, admin meds, will review
--- NOTE | 2018-11-06 11:18 | NUR ---
no change in bp. MD aware of labs and current bp, orders recvd.
[2018-11-06] MEDS ORDERED: LABETALOL HCL 5 MG/ML 20ML VIAL IV NR ×2 (11:30→16:00)
--- NOTE | 2018-11-06 17:05 | NUR ---
pt recvd iv rx for htn. bp now wnl per MD. ok to dc and follow up with PCP. reviewed instructions with pt, verbalized understanding.
== END 2018-11-06 17:07 | disposition home or self-care (01) ==
LOC: FSED 19:29 → ERHOLD 21:32 → IMCU 22:59
PROVIDERS: ADMIT Internal Medicine; ATTEND Internal Medicine
DX: A08.39 Other viral enteritis (principal); I10 Essential (primary) hypertension; E11.9 Type 2 diabetes mellitus without complications; I25.10 Atherosclerotic heart disease of native coronary artery without angina pectoris; Z95.1 Presence of aortocoronary bypass graft; F17.210 Nicotine dependence, cigarettes, uncomplicated; E03.9 Hypothyroidism, unspecified; E66.9 Obesity, unspecified; E78.5 Hyperlipidemia, unspecified; N17.9 Acute kidney failure, unspecified; Z68.30 Body mass index [BMI] 30.0-30.9, adult; F39 Unspecified mood [affective] disorder; Z79.82 Long term (current) use of aspirin; Z79.84 Long term (current) use of oral hypoglycemic drugs
CPT/HCPCS: 36415 ×2; 74176; 76770; 80048 ×2; 80053; 80061; 80076; 82553; 83036; 83735; 83880; 84100; 84484; 85025 ×3; 85610; 93005; 96374; 96376; 99284; G0378 ×3; J2270; J2405; J3490; J7030 ×2; J7050; S0164; 82948; Q9967

== ENCOUNTER 2019-08-17 12:27 | Emergency (ER) | payer MEDICARE ==
[~2019-08-17] VITALS: Ht 154.9 cm; Wt 73.9 kg
[~2019-08-17 12:27] MED LIST: ACETAMINOPHEN325 M1 PO; AFRIN30 ML; ASPIRIN81 MG; ATORVASTATIN CA20 MG PO; ESCITALOPRAM OX20 MG PO; FLAGYL500 MG PO; HYDROCODON-ACE1 EAC9; IMODIUM2 MG PO; LEVAQUIN500 MG PO; LEVOTHYROXINE75 MCG PO; LYRICA50 MG PO; METFORMIN HCL500 MG PO; METOPROLOL SUCC25 MG; MICARDIS40 MG PO; OMEPRAZOLE40 MG PO; PERCOCET 10-321 EACH PO; PROAIR HFA INH8.5 GM; TIZANIDINE HCL4 MG PO; VITAMIN D1000 UNI1 PO; ZOFRAN4 MG PO
--- OUTSIDE RECORDS SUMMARY | 2019-08-17 12:30 | XMS REPORT | Continuity of Care Document ---
Author Author Shellie [employer] [facility] [employer] Address Unknown Phone Unavailable Care Team Providers Care C Engineer Name Role Phone [facility] Information Exchange Unavailable Un available Problems Problem Status Onset Date Classification Date Reported Comments Source Localized edema 02/02/2018 08/17/2018 [facility] R60.0 Active 01/26/2018 [facility] Discharge Diagnosis: Acute cystitis without hematuria 09/14/2015 09/17/2015 [facility] Discharge Diagnosis: Benign paroxysmal v ertigo, right ear 09/14/2015 09/17/2015 [facility] Discharge Diagnosis: Dehydration 09/14/2015 09/17/2015 [facility] DIZZINESS Active 09/14/2015 [facility] Diabetes mellitus (disorder) A ctive Problem [facility]D [facility] Hypertensive disorder, systemic arterial (disorder) Active Problem 02/06/2019 BOYD Graves[facility] (disorder) Acti ve Problem BOYD Graves,[facility] Encounter for screening mammogram for ma lignant neoplasm of breast 02/06/2019 BOYD Graves, BOYD Valentino LOCALIZED EDEMA Active [facility] Medications Medication Details Route Status Patient Instructions Ordering Provider Order Date Source Sulfamethoxazole 800 MG / Trimethoprim 1 60 MG Oral Tablet [Bactrim] 1 tab, PO, BID, for UTI, X 3 day, # 6 ta b, 0 Refill(s) Active 09/15/2015 [facility] meclizine 25 mg oral tablet 25 mg = 1 tab, PO, TID, PRN dizziness, X 10 day, # 30 tab, 0 Refill(s) Active 09/15/2015 [facility] Saline Flush 0.9% Notes: (Same as: BD Posiflush) Inactive 09/14/2015 [facility] Allergies, Adverse Reactions, Alerts Substance Category Reaction Severity Reaction type Status Date Reported Comments Source No Known Medication Allergies Assertion Drug aller gy [facility] Immunizations No Data Provided for This Section Results Order Name Results Value Reference Range Date Interpretation Comments Source URINE AND STOOL UA Bacteria Occasional /HPF None Seen /HPF 09/15/[address] [facility] [address] URINE AND STOOL UA Hyal Cast 2 0 - 2 09/15/2015 [facility] URINE AND STOOL UA Nitrite Negative (09/14/15 7:32 PM) Negative 09/15/2015 [facility] URINE AND STOOL UA Leuk Est Large *ABN* (09/14/15 7:32 PM) Negative 09/15/2015 [facility] URINE AND STOOL UA Sq Epi Occasional /LPF Few /LPF 09/15/2015 [facility] URINE AND STOOL UA WBC 11 0 - 5 09/15/2015 [facility] URINE AND STOOL UA RBC 7 0 - 2 09/15/2015 [facility] URINE AND STOOL UA Turbidity Slight *ABN* (09/14/15 7:32 PM) Clear 09/15/2015 [facility] URINE AND STOOL UA Spec Grav 1.016 <=1.030 09/15/2015 [facility] URINE AND STOOL UA Color Yellow *NA* (09/14/15 7:32 PM) Yellow 09/15/2015 [facility] URINE AND STOOL UA Urobilinogen 2.0 0.1 - 1.0 09/15/2015 [facility] URINE AND STOOL UA Bili Negative *NA* (09/14/15 7:32 PM) Negative 09/15/2015 [facility] URINE AND STOOL UA Blood Negative (09/14/15 7:32 PM) Negative 09/15/2015 [facility] URINE AND STOOL UA Ketones Negative mg/dL Negative mg/dL 09/15/2015 [facility] URINE AND STOOL UA Glucose Negative mg/dL Negative mg/dL 09/15/[address] [facility] [address] URINE AND STOOL UA Protein Negative mg/dL Negative mg/dL 09/15/2015 [facility] URINE AND STOOL UA pH 5.0 5.0 - 8.0 09/15/2015 [facility] CARDIAC ENZYMES CK MB Index 1.5 0.0 - 2.5 09/14/2015 [facility] CARDIAC ENZYMES Troponin-I <0.02 0.00 - 0.40 09/14/2015 [facility] CARDIAC ENZYMES Total CK 96 12 - 191 09/14/2015 [facility] CARDIAC ENZYMES CK MB 1.4 0.5 - 3.6 09/14/2015 [facility] CHEM PANEL ALT 25 0 - 65 09/14/2015 [facility] CHEM PANEL AST 19 0 - 37 09/14/2015 [facility] CHEM PANEL Globulin 3.4 2.0 - 4.0 09/14/2015 [facility] CHEM PANEL AGAP 12.5 10.0 - 20.0 09/14/2015 [facility] CHEM PANEL B/C Ratio 25 6 - 25 09/14/2015 [facility] CHEM PANEL Bili Total 0.4 0.2 - 1.3 09/14/2015 [facility] CHEM PANEL A/G Ratio 1.1 0.7 - 1.6 09/14/2015 [facility] CHEM PANEL eGFR 36 09/14/2015 Result Comment: [...] should be multiplied by the estimated BMI. [facility] CHEM PANEL Albumin Lvl 3.6 3.5 - 5.0 09/14/2015 [facility] CHEM PANEL Alk Phos 133 39 - 136 09/14/2015 [facility] CHEM PANEL Total Protein 7.0 6.4 - 8.4 09/14/2015 [facility] CHEM PANEL BUN 37 7 - 22 09/14/2015 [facility] CHEM PANEL Potassium Lvl 3.5 3.5 - 5.1 09/14/2015 [facility] CHEM PANEL Chloride Lvl 106 95 - 109 09/14/2015 [facility] CHEM PANEL Creatinine Lvl 1.50 0.50 - 1.40 09/14/2015 [facility] CHEM PANEL Sodium Lvl 140 135 - 145 09/14/2015 [facility] CHEM PANEL CO2 25 24 - 32 09/14/2015 [facility] CHEM PANEL Calcium Lvl 8.6 8.5 - 10.5 09/14/2015 [facility] CHEM PANEL Glucose Lvl 110 70 - 99 09/14/2015 [facility] HEMATOLOGY Eosinophils # 0.1 0.0 - 0.5 09/14/2015 [facility] HEMATOLOGY Lymphocytes # 2.8 1.0 - 5.5 09/14/2015 [facility] HEMATOLOGY Monocytes # 0.7 0.0 - 0.8 09/14/2015 [facility] HEMATOLOGY Segs-Bands # 5.7 1.5 - 8.1 09/14/2015 [facility] HEMATOLOGY Basophils 0.4 0.0 - 1.0 09/14/2015 [facility] HEMATOLOGY Monocytes 7.9 2.0 - 12.0 09/14/2015 [facility] [place] Eosinophils 1.3 0.0 - 4.0 09/14/2015 [facility] [place] Lymphocytes 30.0 20.0 - 40.0 09/14/2015 [facility] [place] Segs 60.4 45.0 - 75.0 09/14/2015 [facility] [place] PTT 30.3 22.9 - 35.8 09/14/2015 [facility] [place] MPV 9.3 7.4 - 10.4 09/14/2015 [facility] [place] MCV 88.0 80.0 - 98.0 09/14/2015 [facility] [place] MCH 29.1 27.0 - 31.0 09/14/2015 [facility] [place] Platelet 234 133 - 450 09/14/2015 [facility] [place] MCHC 33.1 32.0 - 36.0 09/14/2015 [facility] [place] RDW 14.4 11.5 - 14.5 09/14/2015 [facility] [place] WBC 9.4 3.7 - 10.4 09/14/2015 [facility] [place] Hgb 13.4 12.0 - 16.0 09/14/2015 [facility] [place] Hct 40.5 36.0 - 48.0 09/14/2015 [facility] [place] RBC 4.60 4.20 - 5.40 09/14/2015 [facility] HEMATOLOGY PT 14.6 12.0 - 14.7 09/14/2015 [facility] HEMATOLOGY INR 1.11 0.85 - 1.17 09/14/2015 [facility] Pathology Reports No Data Provided for This Section Diagnostic Reports Report Value Date Source Breast Mammo Scrn LARISSA incl CAD MA BILATERAL DIGITAL SCREENING MAMMOGRAM WITH CAD: 02/03/2019 CLINICAL: Z12.31 Encounter For Screening Mammogram For Malignant Neoplasm Of Breast/Z12.31 Encounter For Screening Mammogram For Malignant Neoplasm Of Breast. Current study was evaluated with a Computer Aided Detection (CAD) system. COMPARISON:Comparison is made to exam dated: 05/26/2017 mammogram - [facility]. TECHNIQUE: Mammographic views were obtained using digital acquisition. Current study was also evaluated with a Computer Aided Detection (CAD) system. FINDINGS: The tissue of both breasts is almost entirely fat. The patient is status post reduction both breasts. Both breasts have post- operative findings. There are benign appearing calcifications in both breasts. No significant masses, calcifications, or other findings are seen in either breast. There has been no significant interval change. IMPRESSION: BENIGN RECOMMENDATION:There is no mammographic evidence of malignancy. A 1 year screening mammogram is recommended.(02/04/2020) This exam was interpreted at [id number] for DALIA Arroyo 15. Professional services are provided by the [facility] Division of Diagnostic Imaging. Nazia Domínguez M.D. ms/rolanda:02/04/2019 08:36:47 Strategic Sourcing Manager(s): RT Walker(R)(M), [facility] letter sent: BI-RADS 1/2 Mammogram BI-RADS: 2 Benign 02/03/2019 ANITA Valentino Ext Lower Arterial bilat w pressure US [...] 1.0. IMPRESSION: 1. Low amplitude pulsatile arterial wave form in the left great toe. Possible small vessel distal peripheral vascular disease within the left great toe. 2. Otherwise, no evidence for hemodynami eddie significant peripheral vascular disease. SL: [id number] 01/27/2018 [facility] Breast Mammo Scrn LARISSA incl CAD [...] is recommended.(05/27/2018) This exam was interpreted at [id number] for DALIA Bowman 15. Professional services are provided by the [facility] Division of Diagnostic Imaging. Jamar Buck M.D. rskortney/penrocio:05/26/2017 14:14:49 Strategic Sourcing Manager(s): RT Justus(R)(M), [facility] letter sent: BI-RADS 1/2 Mammogram BI-RADS: 2 Benign 05/26/2017 [facility] Chest 1view DX Study: Chest 1v iew DX 09/14/2015 5:00 PM CDT Patient Name: SERVANDO GIANG MR: [id number] : 1950; Age: 65 years y/o Female [...] IMPRESSION: 1. No acute abnormality as above discus sed. SL: TPAINTER-PC 09/14/2015 [facility] Consultation Notes No Data Provided for This Section Discharge Summaries No Data Provided for This Section History and Physicals No Data Provided for This Section Vital Signs Vital Sign Value Date Comments Source Systolic (mm Hg) 148 09/15/2015 [facility] Diastolic (mm Hg) 53 09/15/2015 [facility] Temperature Oral (F) 98 F 09/15/2015 [facility] Respitory Rate 18 09/15/2015 [facility] Systolic (mm Hg) 102 09/14/2015 [facility] Diastolic (mm Hg) 37 09/14/2015 [facility] Respitory Rate 16 09/14/2015 [facility] Systolic (mm Hg) 102 09/14/2015 [facility] Diastolic (mm Hg) 68 09/14/2015 [facility] Respitory Rate 20 09/14/2015 [facility] Heart Rate 71 09/14/2015 [facility] Weight 81.818 09/14/2015 [facility] BMI Calculated 34.08 09/14/2015 [facility] Height 154.94 cm 09/14/2015 [facility] Temperature Oral (F) 97.6 F 09/14/2015 [facility] Encounters Location Location Details Encounter Type Encounter Number Reason For Visit Attending Provider ADM Date DC Date Status Source [facility] [id number] Rich Marinelli 09/14/2015 09/15/2015 [facility] [place] [facility] [id number] Maylin Sánchezcardo 05/26/2017 [id number] Maylin Almodovar-Suresh 01/27/2018 01/28/2018 [facility] [id number] Maylin Boccardo-Suresh 10/19/2018 10/20/2018 [facility] [id number] Maylinshannon Sánchezcardo-Suresh 02/03/2019 02/04/2019 [place] Procedures Procedure Code Date Perfomer Comments Source CABG x 3 - Coronary artery bypass grafts x 3 [id number] BOYD Graves, BOYD Valentino,[facility] Nerve operation [id number] BOYD Graves, BOYD Valentino,[facility] Assessment and Plan No Data Provided for This Section Plan of Care No Data Provided for This Section Social History Social History Date Source Social History TypeResponse Smoking Status Current every day smoker; Exposure to Tobacco Smoke self; Cigarette Smoking Last 365 Days Yes; Reg Smoking Cessation Counseling Yes entered on: 09/14/15 09/14/2015 [facility] Social History TypeResponse Smoking Status Current every day smoker; Exposure to Tobacco Smoke self; Cigarette Smoking Last 365 Days Yes; Reg Smoking Cessation Counseling Yes entered on: 09/14/15 09/14/2015 BOYD Valentino Social History TypeResponse Smoking Status Current every day smoker; Exposure to Tobacco Smoke self; Cigarette Smoking Last 365 Days Yes; Reg Smoking Cessation Counseling Yes entered on: 09/14/15 09/14/2015 ANITA NIX [place] Family History No Data Provided for This Section Advance Directives No Data Provided for This Section Functional Status No Data Provided for This Section
--- OUTSIDE RECORDS SUMMARY | 2019-08-17 12:30 | XMS REPORT | Summary of Care ---
Author Author [facility] - [facility] Organization [facility] - [facility] Address Unknown Phone Unavailable Encounter [facility] [place](FIN) [id number] Date(s): 02/03/19 - 02/03/19 [facility] Outpatient Imaging - [place] [address] [phone] [phone] Encounter Diagnosis Encounter for screening mammogram for malignant neoplasm of breast (Final) - Discharge Disposition: Home or Self Care Attending Physician: Maylin Mitchell MD Referring Physician: Maylin Mitchell MD Vital Signs No data available for this section Problem List Condition Effective Dates Status Health Status Informan t Diabetes Active mellitus(Confirmed) Hypertension(Confirm Active ed) Hypothyroidism(Confi Active rmed) Allergies, Adverse Reactions, Alerts No Known Medication Allergies Medications No data available for this section Results No data available for this section Immunizations No data available for this section Procedures Procedure Date Related Diagnosis Body Site Status CABG x 3 - Coronary artery bypass grafts x 3 Comp leted Nerve operation Completed Social History Social History Type Response Smoking Status Current every day smoker; E xposure to Tobacco Smoke self; Cigarette Smoking Last 365 Days Yes; Reg Smoking Cessatio n Counseling Yes entered on: 09/14/15 Assessment and Plan No data available for this section
--- OUTSIDE RECORDS SUMMARY | 2019-08-17 12:30 | XMS REPORT | Continuity of Care Document ---
Author Author [facility] t Organization [facility] Address [address] [place] [address] Phone Unavailable Care Team Providers Care Care Transition Coordinator Name Role Phone GEMA BUSTILLO MD PCP Shankar NORWOOD Attphys Unavailable Nishi-Gema Prince Attphys BORIS SIMMONS Attphys Unavailable BocOlena aguiarvia Attphys Rich Marinelli Attphys BORIS SIMMONS Admphys Unavailable Boccar-SureshOlena riosvia Admphys Payers Payer Name Policy Type Policy Number Effective Date Expiration Date Leilani hart [facility] [id number] 2019 00:00:00 [facility] Problems Condition Name Condition Details Condition Category Status Onset Date Resolution Date Last Treatment Date Treating Clinician Comments Source R60.0 R60. 0 Active 01/26/2018 [facility] Active 2018-01-26 00:00:00 2018-01-27 09:58:00 [facility] DIZZINESS DIZZ INESS Active 09/14/2015 [facility] Active 2015-09-14 00:00:00 2016-09-09 08:08:00 [facility] Gastroenteritis Gastroenteritis Problem Active [facility] Hypotension due to hypovolemia Hypotension due to hypovolemia Problem Active [facility] Acute renal failure superimposed on chronic kidney dis ease Renal failure (ARF), acute on chronic Problem Active [facility] Diabetes mellitus (disorder) D iabetes mellitus (disorder) Active Problem 02/06/2019 ANITA Graves BOYD Valentino [facility] Active 2019-02-06 00:09:40 ANITA Graves [facility] [place], [facility] Hypertensive disorder, systemic arterial (disorder) Hypertensive disorder, systemic arterial (disorder) Active Problem 02/06/2019 [facility] [place], [facility] [place] Problem Ac tive 2019-02-06 00:09:40 [place] [facility] [place], [facility] Hypothyroidism (disorder) Hypo thyroidism (disorder) Active Problem 02/06/2019 [facility] [place], [facility] [place] Problem Active 2019-02-06 00:09:40 [facility] [place], [facility] [place], [facility] Encounter for screening mammogram for malignant neopla sm of breast Encounter for screening mammogram for malignant neoplasm of breast 02/06/2019 [facility] [place], [facility] [place] Problem 2019-02-06 00:09:40 [facility] [place], [facility] [place] LOCALIZED EDEMA LOCA LIZED EDEMA Active [facility] Active 2018-01-27 09:58:00 [facility] Localized edema Loca lized edema 02/02/2018 08/17/2018 [facility] Problem 2018-02-02 05:02:10 2018-08-17 11:16:33 2018-08 11:16:33 [facility] Discharge Diagnosis: Acute cystitis without hematuria Discharge Diagnosis: Acute cystitis without hematuria 09/14/2015 09/17/2015 [facility] Problem 2015-09-14 05:00:00 2015-09-17 03:55:03 2015-09 03:55:03 [facility] Discharge Diagnosis: Benign paroxysmal vertigo, right ear Discharge Diagnosis: Benign paroxysmal vertigo, right ear 09/14/2015 09/17/2015 [facility] Problem 2015-09-14 05:00:00 2015-09-17 03:55:03 2 03:55:03 [facility] Discharge Diagnosis: Dehydration Discharge Diagnosis: Dehydration 09/14/2015 09/17/2015 [facility] Problem 20 28-09-00 05:00:00 2015-09-17 03:55:03 2015-09-17 03:55:03 [facility] Allergies, Adverse Reactions, Alerts Allergy Name Allergy Type Status Severity Reaction(s) Onset Date Inacti ve Date Treating Clinician Comments Source No Known Medication Allergies No Known Medication Allergies Active [facility] Social History Smoking Status Start Date Stop Date Source Social History 2015-09-14 22:30:46 [facility] Medications Ordered Medication Name Filled Medication Name Start Date Stop Da te Current Medication? Ordering Clinician Indication Dosage Frequency Signature (SIG) Comments Components Source Metronidazole (Flagyl) 500 Mg Tablet, 500 Mg Oral Metr onidazole (Flagyl) 500 Mg Tablet, 500 Mg Oral 2018-11-06 00:00:00 2019-03-27 00:00:00 No Boris mcnally Md 500 Three Times A Day [facility] Ondansetron Hcl (Zofran*) 4 Mg Tablet, 4 Mg Oral Ondan setron Hcl (Zofran*) 4 Mg Tablet, 4 Mg Oral 2018-11-06 00:00:00 2019-03-27 00:00:00 No Boris Simmons Md 4 Every 4 Hours as needed for Nausea/Vomiting [facility] Sulfamethoxazole 800 MG / Trimethoprim 160 MG Oral Tablet [B actrim] 2015-09-15 00:59:00 Yes 1 tab, PO, BID, for UT I, X 3 day, # 6 tab, 0 Refill(s) [facility] meclizine 25 mg oral tablet 2015-09-15 00:59:00 Yes 25 mg = 1 tab, PO, TID, PRN dizziness, X 10 day, # 30 tab, 0 Refill(s) [facility] Saline Flush 0.9% 2015-09-14 22:00:00 No Notes: (Same as: BD Posiflush) [facility] Acetaminophen 325 Mg Tablet Acetaminophen 325 Mg Tablet Yes 500 [facility] Aspirin 81 Mg Tab.chew Aspirin 81 Mg Tab.chew Yes [facility] Atorvastatin Calcium 20 Mg Tablet Atorvastatin Calcium 20 Mg Tablet Yes 40 Daily [facility] Escitalopram Oxalate 20 Mg Tablet Escitalopram Oxalate 20 Mg Tablet Yes 20 Daily as needed for Anxiety [facility] Levothyroxine Sodium 75 Mcg Tablet Levothyroxine Sodium 75 Mcg Tablet Yes 75 Daily [facility] Metformin Hcl 500 Mg Tablet Metformin Hcl 500 Mg Tablet Yes 500 Twice A Day [facility] Metoprolol Succinate 25 Mg Tab.er.24h Metoprolol Succinate 25 Mg Ta b.er.24h Yes Daily [facility] Omeprazole 40 Mg Capsule. Omeprazole 40 Mg Capsule. Yes 20 [facility] Oxycodone Hcl/Acetaminophen (Percocet 10-325 Mg Tablet ) 1 Each Tablet Oxycodone Hcl/Acetaminophen (Percocet 10-325 Mg Tablet) 1 Each Tablet Yes 1 Every 6 Hours as needed for Severe Pain (7-10) [facility] Oxymetazoline Hcl (Afrin) 30 Ml [place] Oxymetazoline Hcl (Afrin) 30 Ml [place] Yes [facility] Pregabalin (Lyrica) 50 Mg Cap Pregabalin (Lyrica) 50 Mg Cap Yes 100 Twice A Day as needed for Pain [facility] Telmisartan (Micardis) 40 Mg Tab Telmisartan (Micardis) 40 Mg Tab Yes 40 Daily [facility] Tizanidine Hcl 4 Mg Tablet Tizanidine Hcl 4 Mg Tablet Yes 4 Bedtime [facility] Albuterol Sulfate (Proair Hfa Inhaler*) 8.5 Gm Inh, 90 Mcg Albuterol Sulfate (Proair Hfa Inhaler*) 8.5 Gm Inh, 90 Mcg 2019-03-27 00:00:00 No 90 [facility] Cholecalciferol (Vitamin D3) (Vitamin D) 1,000 Unit [place], 125 Mcg Oral Cholecalciferol (Vitamin D3) (Vitamin D) 1,000 Unit Tablet, 125 Mcg Oral 2019-03-27 00:00:00 No 125 Daily [facility] Hydrocodone Bit/Acetaminophen (Hydrocodon-Acetaminophn 10-325) 1 Each Tablet, Hydrocodone Bit/Acetaminophen (Hydrocodon-Acetaminophn 10-325) 1 Each Tablet, 2019-03-27 00:00:00 No Four Times Daily as needed for Pain [facility] Loperamide Hcl (Imodium*) 2 Mg Cap, 2 Mg Oral Loperami de Hcl (Imodium*) 2 Mg Cap, 2 Mg Oral 2019-03-27 00:00:00 No 2 [facility] Oxymetazoline Hcl (Afrin) 30 Ml [place], Oxymetazoline Hcl (Afrin) 30 Ml [place], 2019-03-27 00:00:00 No [facility] Levofloxacin (Levaquin) 500 Mg Tablet, 500 Mg Oral Lev ofloxacin (Levaquin) 500 Mg Tablet, 500 Mg Oral 2018-11-06 00:00:00 No 500 D aily [facility] Vital Signs Vital Name Observation Time Observation Value Comments Source Systolic (mm Hg) 2015-09-15 01:00:00 [place] Diastolic (mm Hg) 2015-09-15 01:00:00 [facility] Temperature Oral (F) 2015-09-15 01:00:00 98 F [facility] Respitory Rate 2015-09-15 01:00:00 [place] [facility] Systolic (mm Hg) 2015-09-14 23:50:00 [facility] [place] Diastolic (mm Hg) 2015-09-14 23:50:00 [facility] Respitory Rate 2015-09-14 23:50:00 [place] Systolic (mm Hg) 2015-09-14 22:30:00 [facility] [place] Diastolic (mm Hg) 2015-09-14 22:30:00 [facility] Respitory Rate 2015-09-14 22:30:00 [place] [facility] Heart Rate 2015-09-14 21:50:00 [facility] Weight 2015-09-14 21:50:00 [facility] BMI Calculated 2015-09-14 21:50:00 [facility] Height 2015-09-14 21:50:00 154.94 cm [facility] Temperature Oral (F) 2015-09-14 21:50:00 97.6 F [facility] Procedures Procedure Date / Time Performed Performing Clinician Sourmalini e Ultrasound, renal 2018-11-05 00:00:00 BORIS SIMMONS [facility] CABG x 3 - Coronary artery bypass grafts x 3 BOYD Graves, BOYD Valentino [facility] Nerve operation BOYD Saba ood, BOYD Valentino [facility] Encounters Start Date/Time End Date/Time Encounter Type Admission Type Attendi [facility] Care Department Encounter ID Source 2019-03-27 13:33:00 2019-03-27 15:55:00 Departed Emergency Room 1 SAE NORWOOD [facility] [id number] [facility] 2019-02-03 21:44:00 2019-02-04 05:59:00 [facility] [place] [id number] [facility] [place] 2019-02-03 15:44:00 2019-02-03 23:59:00 Outpatient Gema Maher [facility] [id number] 2018-11-04 21:32:00 2018-11-06 17:07:00 Discharged Inpatient (obs) 1 BORIS SIMMONS [facility] [id number] [facility] 2018-10-19 14:43:00 2018-10-20 04:59:00 [facility] [place] [id number] [facility] [place] 2018-10-19 09:43:00 2018-10-19 23:59:00 [id number] 2018-01-27 15:58:00 2018-01-28 05:59:00 Outpatient [facility] [id number] [facility] 2018-01-27 09:58:00 2018-01-27 23:59:00 Outpatient Gema Maher [facility] [id number] 2017-05-26 14:53:00 2017-05-27 04:59:00 Outpt Diag Services [facility] Outpatient Imaging [place] [id number] [facility] [place] 2017-05-26 09:53:00 2017-05-26 23:59:00 Outpatient Gema Jernigan [id number] 2015-09-14 21:47:00 2015-09-15 01:17:00 Emergency Center [facility] [id number] [facility] 2015-09-14 16:47:00 2015-09-14 20:17:00 Outpatient Rich Marinelli [facility] [id number] Results Test Description Test Time Test Comments Results Result Comments Source CT C-SPINE W/O - HOPD 2019-03-27 14:59:00 [place] [address] Patient Name: SERVANDO GIANG MR #: [id number] : 1950 Age/Sex: 69/F Req #: [id number] Adm Physician: Ordered by: SAE NORWOOD MD Report #: [id number] Location: [facility] Room/Bed: Procedure: [id number] HOPD/CT C-SPINE W/O - HOPD Exam Date: 03/27/19 Exam Time: 1430 REPORT STATUS: Signed History: Neck pain Comparison studies: None Technique: Axial images were obtained through the cervical region. Coronal and sagittal images reconstructed from the axial data. Intravenous contrast: None Dose modulation, iterative reconstruction, and/or weight based adjustment of the mA/kV was utilized to reduce the radiation dose to as low as reasonably achievable. Findings: Atlantoaxial articulation: Intact Alignment: Straightening of the normal lordosis No scoliosis. Cervicomedullary junction: No abnormalities. Patent foramen magnum. Soft tissues: No gross paraspinal abnormalities. Atherosclerotic calcifications of the aortic arch, branches and carotid bulbs. Anterior and intervertebral body fusion at C5-6 without evidence of complication Vertebrae: No fractures, neoplasm or infection. D egenerative changes: C2-C3: Patent spinal canal and foramina . C3- 4: Disc degeneration with decreased intervertebral space. Posterior disc osteophyte complex and bilateral uncinate process hypertrophy results in severe canal stenosis and mild bilateral foraminal narrowing . C4-5: Disc degeneration with decreased intervertebral space. Posterior disc osteophyte complex and bilateral uncinate process hypertrophy results in mild canal stenosis and mild bilateral foraminal narrowing . C5-6: Fused intervertebral space. Posterior disc osteophyte complex and bilateral uncinate process hypertrophy results in severe canal stenosis and moderate bilateral foraminal narrowing . C6-7: Disc degeneration space. And uncinate process hypertrophy results in mild canal stenosis and mild bilateral foraminal narrowing . C7-T1: Patent spinal canal and foramina . IMPRESSION: 1. Severe degenerative canal stenosis at C3-4 and C5-6. 2. Anterior a nd intervertebral fusion at C5-6 without complication. 3. Moderate bilateral degenerative foraminal narrowing at C3-4. Multilevel mild canal stenosis and foraminal narrowing as described above Signed by: DR Ze Norris M.D. on 03/27/2019 3:39 PM Dictated By: ZE GROVES MD 38 Transcribed By: SUNSHINE on 03/27/191538 COPY TO: SAE NORWOOD MD Bedside Glucose 2019-03-27 14:14:00 Test Item Bedside Glucose (test code = 33003-2) 135 70-120 H Meter ID: [id number] Medical CenterPhosphorus Level 2018-11-06 07:45:00* Test Item Value Reference Range Interpretation Comments Phosphorus Level (test code = SPD7179) 3.1 2.3-4.7 [facility]Magnesium Wrbgw9911-87-43 07:45:00* Test Item Value Reference Range Interpretation Comments Magnesium Level (test code = 13186-1) 1.6 1.3-2.1 [facility] CenterPhosphorus Rewom4676-19-29 07:45:00* Test Item Value Reference Range Interpretation Comments Phosphorus Level (test code = HBR0562) 3.1 2.3-4.7 [facility] Yakap7829-06-40 07:45:00* Test Item Value Reference Range Interpretation Comments Magnesium Level (test code = 08901-9) 1.6 1.3-2.1 [facility] CenterBlood Urea Yraayvkb7913-36-14 07:07:00* Test Item Value Reference Range Interpretation Comments Blood Urea Nitrogen (test code = 3094-0) 10-08 [facility] CenterBUN/Creatinine Sryak3186-21-82 07:07:00* Test Item Value Reference Range Interpretation Comments BUN/Creatinine Ratio (test code = 3097-3) 09-07 [facility] Urea Qgnajwrw5304-19-68 07:07:00* Test Item Value Reference Range Interpretation Comments Blood Urea Nitrogen (test code = 3094-0) 10-08 [facility] CenterBUN/Creatinine Ojeqp3383-30-24 07:07:00* Test Item Value Reference Range Interpretation Comments BUN/Creatinine Ratio (test code = 3097-3) 09-07 [facility] Lynzy0882-55-60 06:49:00* Test Item Value Reference Range Interpretation Comments Sodium Level (test code = 2951-2) 144 136-145 [facility] CenterPotassium Unavx6661-72-56 06:49:00* Test Item Value Reference Range Interpretation Comments Potassium Level (test code = 2823-3) 4.5 3.5-5.1 [facility] CenterChloride Vvakn9638-85-09 06:49:00* Test Item Value Reference Range Interpretation Comments Chloride Level (test code = 2075-0) 111 98-107 H [facility] CenterCarbon Dioxide Erfeh3478-56-23 06:49:00* Test Item Value Reference Range Interpretation Comments Carbon Dioxide Level (test code = 2028-9) 23 22-29 [facility] CenterAnion Jwa7394-77-43 06:49:00* Test Item Value Reference Range Interpretation Comments Anion Gap (test code = 42575-3) 14.5 8-16 [facility] CenterCreatinine2019-08-24 06:49:00* Test Item Value Reference Range Interpretation Comments Creatinine (test code = 2160-0) 0.81 0.57-1.11 [facility] CenterEstimat Glomerular Filtration Rate 2018-11-06 06:49:00* Test Item Value Reference Range Interpretation Comments Estimat Glomerular Filtration Rate (test code = 366562154) > 60 >60 Ranges were taken from the National Kidney Disease Education Program and the [facility] [employer] literature.Reference ranges:60 or greater: Wdcndw81-57 ( for 3 consecutive months): Chronic kidney disease 15 or less: Kidney failureFreestone Medical CenterGlucose Fzhxu9649-07-65 06:49:00* Test Item Value Reference Range Interpretation Comments Glucose Level (test code = VFL1686) 88 74-118 [facility] CenterCalcium Ettwi7498-17-36 06:49:00* Test Item Value Reference Range Interpretation Comments Calcium Level (test code = 22486-0) 9.1 8.4-10.2 [facility] Hospitalodium Idatt6568-69-62 06:49:00* Test Item Value Reference Range Interpretation Comments Sodium Level (test code = 2951-2) 144 136-145 [facility] CenterPotassium Jicwh6135-03-30 06:49:00* Test Item Value Reference Range Interpretation Comments Potassium Level (test code = 2823-3) 4.5 3.5-5.1 [facility] CenterChloride Vowma0111-06-13 06:49:00* Test Item Value Reference Range Interpretation Comments Chloride Level (test code = 2075-0) 111 98-107 H [facility] CenterCarbon Dioxide Pptkw2155-69-43 06:49:00* Test Item Value Reference Range Interpretation Comments Carbon Dioxide Level (test code = 2028-9) 23 22-29 [facility] CenterAnion Xvt3678-96-87 06:49:00* Test Item Value Reference Range Interpretation Comments Anion Gap (test code = 30898-8) 14.5 8-16 [facility] CenterCreatinine2019-08-24 06:49:00* Test Item Value Reference Range Interpretation Comments Creatinine (test code = 2160-0) 0.81 0.57-1.11 [facility] CenterEstimat Glomerular Filtration Rate 2018-11-06 06:49:00* Test Item Value Reference Range Interpretation Comments Estimat Glomerular Filtration Rate (test code = 274521307) > 60 >60 Ranges were taken from the National Kidney Disease Education Program and the [facility] [employer] literature.Reference ranges:60 or greater: Fmnjqo44-23 ( for 3 consecutive months): Chronic kidney disease 15 or less: Kidney failureFreestone Medical CenterGlucose Ppifw9080-94-40 06:49:00* Test Item Value Reference Range Interpretation Comments Glucose Level (test code = FNC4268) 88 74-118 [facility] CenterCalcium Zbqsy7329-85-25 06:49:00* Test Item Value Reference Range Interpretation Comments Calcium Level (test code = 16695-4) 9.1 8.4-10.2 [facility] CenterWhite Blood Gbzhz7871-26-37 06:37:00* Test Item Value Reference Range Interpretation Comments White Blood Count (test code = 6690-2) 5.90 4.8-10.8 [facility] CenterRed Blood Fvuuv7973-47-06 06:37:00* Test Item Value Reference Range Interpretation Comments Red Blood Count (test code = 789-8) 3.93 3.6-5.1 [facility] CenterHemoglobin2019-08-24 06:37:00* Test Item Value Reference Range Interpretation Comments Hemoglobin (test code = 73096-8) 11.7 12.0-16.0 L [facility] CenterHematocrit2019-08-24 06:37:00* Test Item Value Reference Range Interpretation Comments Hematocrit (test code = 4544-3) 35.9 34.2-44.1 [facility] CenterMean Corpuscular Wstnre5764-42-43 06:37:00* Test Item Value Reference Range Interpretation Comments Mean Corpuscular Volume (test code = 787-2) 91.3 81-99 [facility] CenterMean Corpuscular Gazerfhkry6110-66-98 06:37:00* Test Item Value Reference Range Interpretation Comments Mean Corpuscular Hemoglobin (test code = 785-6) 29.8 28-32 [facility] CenterMean Corpuscular Hemoglobin Concent 2018-11-06 06:37:00* Test Item Value Reference Range Interpretation Comments Mean Corpuscular Hemoglobin Concent (test code = 786-4) 32.6 31-35 [facility] CenterRed Cell Distribution Otihv2557-58-07 06:37:00* Test Item Value Reference Range Interpretation Comments Red Cell Distribution Width (test code = 07208-1) 13.7 11.7 -14.4 [facility] CenterPlatelet Prsfg9703-61-67 06:37:00* Test Item Value Reference Range Interpretation Comments Platelet Count (test code = 777-3) 245 140-360 [facility] CenterNeutrophils (%) (Auto)2018-11-06 06:37:00 * Test Item Value Reference Range Interpretation Comments Neutrophils (%) (Auto) (test code = 17635-0) 48.8 38.7-80.0 [facility] CenterLymphocytes (%) (Auto)2018-11-06 06:37:00 * Test Item Value Reference Range Interpretation Comments Lymphocytes (%) (Auto) (test code = 736-9) 40.0 18.0-39.1 H [facility] CenterMonocytes (%) (Auto)2018-11-06 06:37:00* Test Item Value Reference Range Interpretation Comments Monocytes (%) (Auto) (test code = 5905-5) 8.5 4.4-11.3 [facility] CenterEosinophils (%) (Auto)2018-11-06 06:37:00 * Test Item Value Reference Range Interpretation Comments Eosinophils (%) (Auto) (test code = 713-8) 2.2 0.0-6.0 [facility] CenterBasophils (%) (Auto)2018-11-06 06:37:00* Test Item Value Reference Range Interpretation Comments Basophils (%) (Auto) (test code = 706-2) 0.3 0.0-1.0 [facility] CenterIM GRANULOCYTES %2018-11-06 06:37:00* Test Item Value Reference Range Interpretation Comments IM GRANULOCYTES % (test code = IM GRANULOCYTES %) 0.2 0.0- 1.0 [facility] CenterNeutrophils # (Auto)2018-11-06 06:37:00* Test Item Value Reference Range Interpretation Comments Neutrophils # (Auto) (test code = 751-8) 2.9 2.1-6.9 [facility] CenterLymphocytes # (Auto)2018-11-06 06:37:00* Test Item Value Reference Range Interpretation Comments Lymphocytes # (Auto) (test code = 12151-5) 2.4 1.0-3.2 [facility] CenterMonocytes # (Auto)2018-11-06 06:37:00* Test Item Value Reference Range Interpretation Comments Monocytes # (Auto) (test code = 742-7) 0.5 0.2-0.8 [facility] CenterEosinophils # (Auto)2018-11-06 06:37:00* Test Item Value Reference Range Interpretation Comments Eosinophils # (Auto) (test code = 711-2) 0.1 0.0-0.4 [facility] CenterBasophils # (Auto)2018-11-06 06:37:00* Test Item Value Reference Range Interpretation Comments Basophils # (Auto) (test code = 704-7) 0.0 0.0-0.1 [facility] CenterAbsolute Immature Granulocyte (auto 2018-11-06 06:37:00* Test Item Value Reference Range Interpretation Comments Absolute Immature Granulocyte (auto (zully t code = Absolute Immature Granulocyte (auto) 0.01 0-0.1 [facility] CenterWhite Blood Enztp2862-42-08 06:37:00* Test Item Value Reference Range Interpretation Comments White Blood Count (test code = 6690-2) 5.90 4.8-10.8 [facility] CenterRed Blood Fakhs2380-22-74 06:37:00* Test Item Value Reference Range Interpretation Comments Red Blood Count (test code = 789-8) 3.93 3.6-5.1 [facility] CenterHemoglobin2019-08-24 06:37:00* Test Item Value Reference Range Interpretation Comments Hemoglobin (test code = 11163-7) 11.7 12.0-16.0 L [facility] CenterHematocrit2019-08-24 06:37:00* Test Item Value Reference Range Interpretation Comments Hematocrit (test code = 4544-3) 35.9 34.2-44.1 [facility] CenterMean Corpuscular Ugagvr8287-30-60 06:37:00* Test Item Value Reference Range Interpretation Comments Mean Corpuscular Volume (test code = 787-2) 91.3 81-99 [facility] CenterMean Corpuscular Eweuubqbbm9524-04-77 06:37:00* Test Item Value Reference Range Interpretation Comments Mean Corpuscular Hemoglobin (test code = 785-6) 29.8 28-32 [facility] CenterMean Corpuscular Hemoglobin Concent 2018-11-06 06:37:00* Test Item Value Reference Range Interpretation Comments Mean Corpuscular Hemoglobin Concent (test code = 786-4) 32.6 31-35 [facility] CenterRed Cell Distribution Lzedd7853-83-78 06:37:00* Test Item Value Reference Range Interpretation Comments Red Cell Distribution Width (test code = 87300-2) 13.7 11.7 -14.4 [facility] CenterPlatelet Uvepf7555-70-15 06:37:00* Test Item Value Reference Range Interpretation Comments Platelet Count (test code = 777-3) 245 140-360 [facility] CenterNeutrophils (%) (Auto)2018-11-06 06:37:00 * Test Item Value Reference Range Interpretation Comments Neutrophils (%) (Auto) (test code = 15064-9) 48.8 38.7-80.0 [facility] CenterLymphocytes (%) (Auto)2018-11-06 06:37:00 * Test Item Value Reference Range Interpretation Comments Lymphocytes (%) (Auto) (test code = 736-9) 40.0 18.0-39.1 H [facility] CenterMonocytes (%) (Auto)2018-11-06 06:37:00* Test Item Value Reference Range Interpretation Comments Monocytes (%) (Auto) (test code = 5905-5) 8.5 4.4-11.3 [facility] CenterEosinophils (%) (Auto)2018-11-06 06:37:00 * Test Item Value Reference Range Interpretation Comments Eosinophils (%) (Auto) (test code = 713-8) 2.2 0.0-6.0 [facility]Basophils (%) (Auto)2018-11-06 06:37:00* Test Item Value Reference Range Interpretation Comments Basophils (%) (Auto) (test code = 706-2) 0.3 0.0-1.0 [facility] CenterIM GRANULOCYTES %2018-11-06 06:37:00* Test Item Value Reference Range Interpretation Comments IM GRANULOCYTES % (test code = IM GRANULOCYTES %) 0.2 0.0- 1.0 [facility] CenterNeutrophils # (Auto)2018-11-06 06:37:00* Test Item Value Reference Range Interpretation Comments Neutrophils # (Auto) (test code = 751-8) 2.9 2.1-6.9 [facility] CenterLymphocytes # (Auto)2018-11-06 06:37:00* Test Item Value Reference Range Interpretation Comments Lymphocytes # (Auto) (test code = 80362-6) 2.4 1.0-3.2 [facility] CenterMonocytes # (Auto)2018-11-06 06:37:00* Test Item Value Reference Range Interpretation Comments Monocytes # (Auto) (test code = 742-7) 0.5 0.2-0.8 [facility] CenterEosinophils # (Auto)2018-11-06 06:37:00* Test Item Value Reference Range Interpretation Comments Eosinophils # (Auto) (test code = 711-2) 0.1 0.0-0.4 [facility] CenterBasophils # (Auto)2018-11-06 06:37:00* Test Item Value Reference Range Interpretation Comments Basophils # (Auto) (test code = 704-7) 0.0 0.0-0.1 [facility] CenterAbsolute Immature Granulocyte (auto 2018-11-06 06:37:00* Test Item Value Reference Range Interpretation Comments Absolute Immature Granulocyte (auto (zully t code = Absolute Immature Granulocyte (auto) 0.01 0-0.1 [facility] CenterUS RENAL RETROPERITONEAL [id number] 10:45:00 [facility] [address] [place] [address] Patient Name: SERVANDO GIANG MR #: [id number] : 1950 Age/Sex: 68/F Req #: [id number] Adm Physician: BORIS SIMMONS MD Ordered by: BORIS SIMMONS MD Report #: [id number] Location: [facility] Room/Bed: [place] [address] Procedure: [id number] US /US RENAL RETROPERITONEAL COMP Exam Date: 11/05/18 E xam Time: 927 REPORT STATUS: Yaneli d EXAM: Renal Ultrasound INDICATION: Renal cyst versus mass COMPARISON: C T of the abdomen and pelvis performed 11/04/2018TECHNIQUE: Transverse and longi tudinal images of the kidneys and bladder were obtained. FINDINGS: Right Kidney: Length: 10.7 cm Appearance: Normal echogenicity. Jaron ecting system: No hydronephrosis Stones: None Cyst/Mass: 2 anechoic cysts ar e identified measuring 3.0 x 3.0 x 2.9 cm and 2.3 x 1.8 x 2.0 cm Left Kid mireille: Length: 9.6 cm Appearance: Normal echogenicity. Collecting system: No hydronephrosis Stones: None Cyst/Mass: There is a 1.6 x 1.3 x 1.7 cm ane choic cyst. Bladder: Normal IMPRESSION: Bilateral renal cysts. No renal mass identified. Signed by: Ayaz Hanson MD on 11/05/2018 10:47 AM Dictated By: AYAZ HANSON MD 46 Transcribed By: SUNSHINE on 11/05/181046 COPY TO: BORIS SIMMONS MD Triglycerides Eluug0248-67-98 07:24:00* Test Item Value Reference Range Interpretation Comments Triglycerides Level (test code = 2571-8) 155 0-149 H [facility] CenterCholesterol Rfycu4326-88-21 07:24:00* Test Item Value Reference Range Interpretation Comments Cholesterol Level (test code = 2093-3) 113 0-199 Less than 200 mg/dL Low Vurm599 - 239 mg/dL Borderline Kryz681 m g/dl and greater High Risk [facility] CenterLDL Sbxuowuekbe6278-12-90 07:24:00* Test Item Value Reference Range Interpretation Comments LDL Cholesterol (test code = 2089-1) 46 60-130 L [facility] CenterHDL Lfhqexjnelf0551-17-24 07:24:00* Test Item Value Reference Range Interpretation Comments HDL Cholesterol (test code = 2085-9) 36 40-60 L [facility] CenterCholesterol/HDL Eiwul8845-75-98 07:24:00 * Test Item Value Reference Range Interpretation Comments Cholesterol/HDL Ratio (test code = 9830-1) 3.1 3.0-3.6 [facility] CenterTriglycerides Obrdu2959-14-75 07:24:00* Test Item Value Reference Range Interpretation Comments Triglycerides Level (test code = 2571-8) 155 0-149 H [facility] CenterCholesterol Xvbna4679-47-15 07:24:00* Test Item Value Reference Range Interpretation Comments Cholesterol Level (test code = 2093-3) 113 0-199 Less than 200 mg/dL Low Twqh258 - 239 mg/dL Borderline Nwgh747 m g/dl and greater High Risk [facility] CenterLDL Riwtodunler0453-11-11 07:24:00* Test Item Value Reference Range Interpretation Comments LDL Cholesterol (test code = 2089-1) 46 60-130 L [facility] CenterHDL Mjryvddoowz5163-03-08 07:24:00* Test Item Value Reference Range Interpretation Comments HDL Cholesterol (test code = 2085-9) 36 40-60 L [facility] CenterCholesterol/HDL Kltlb6550-31-24 07:24:00 * Test Item Value Reference Range Interpretation Comments Cholesterol/HDL Ratio (test code = 9830-1) 3.1 3.0-3.6 [facility] CenterHemoglobin A1c Plewkvw2420-51-72 07:19:00 * Test Item Value Reference Range Interpretation Comments Hemoglobin A1c Percent (test code = Hemoglobin A1c Percent) 5.7 4.0-7.0 [facility] CenterHemoglobin A1c Zrrvtou5542-04-89 07:19:00 * Test Item Value Reference Range Interpretation Comments Hemoglobin A1c Percent (test code = Hemoglobin A1c Percent) 5.7 4.0-7.0 [facility] CenterCT ABD/PEL WO DSWQVNJJ-XWSG3517-77-22 21:04:00 [place] [address] Patient Name: SERVANDO GIANG MR #: [id number] : 1950 Age/Sex: 68/F Req #: [id number] Adm Physician: Ordered by: SAE NORWOOD MD Report #: [id number] Location: [facility] Room/Bed: Procedure: [id number] H OPD/CT ABD/PEL WO CONTRAST-HOPD Exam Date: 11/04/18 Exam Time: 2029 REPORT STATUS: Sign ed EXAM: CT Abdomen and Pelvis WITHOUT contrast INDICATION: Abdominal shankar n, nausea, vomiting COMPARISON: None. TECHNIQUE: Abdomen and pelvis were s canned utilizing a multidetector helical scanner from the lung base to the pub ic symphysis without administration of IV contrast. Absence of intravenous con trast decreases sensitivity for detection of focal lesions and vascular pathol ogy. Coronal and sagittal reformations were obtained. Routine protocol was per formed. IV CONTRAST: None ORAL CONTRAST: None CO MPLICATIONS: None RADIATION DOSE: Total DLP: 736 mGy*cm Estim ated effective dose: (DLP x 0.015 x size factor) mSv CTDIvol has been rev iewed. It is below the limits set by the Radiation Protocol Committee (RPC). Dose modulation, iterative reconstruction, and/or weight based adjustment of the mA/kV was utilized to reduce the radiation dose to as low as reasonably achievable. FINDINGS: LINES and TUBES: None. LOWER THORAX: L eft coronary artery calcifications. HEPATOBILIARY: No focal hepatic le sions. No biliary ductal dilation. GALLBLADDER: No radio-opaque stones or sludge. No wall thickening. SPLEEN: No splenomegaly. PANCREAS: No fo steve masses or ductal dilatation. ADRENALS: No adrenal nodules KI DNEYS/URETERS: No hydronephrosis. There are 2 round cystic lesions in the rig ht kidney, one in the interpolar parenchyma measures 3 cm, the other in the in ferior pole parenchyma in measures 1.5 cm. No stones. GI TRACT: No abnor mal distention, wall thickening, or evidence of bowel obstruction. Appendix i s normal. PELVIC ORGANS/BLADDER: Unremarkable. LYMPH NODES: No lymphad enopathy. VESSELS: There is mild atherosclerotic disease in the aorta and m ajor arterial branches. PERITONEUM / RETROPERITONEUM: No free air or flui d. BONES: Unremarkable. SOFT TISSUES: Unremarkable. I MPRESSION: 1. Two round cystic lesions measure up to 3 mm in the right ki dney, incompletely characterized on this noncontrast CT. A nonemergent renal ultrasound could further characterize these findings. 2. Left coronary arter y calcific atherosclerosis. Signed by: Tyrone Carmen DO on 11/04/2018 9:21 PM Dictated By: TYRONE CARMEN DO 20 Transcribed By: SUNSHINE on 11/04/182120 COPY TO: SAE NORWOOD MD URINE AND CAHEY5547-05-21 00:32:002[facility] URINE AND MKKOO3571-73-08 00:32:00Negative (09/14/15 7:32 PM) [facility] RNPEN2312-98-78 00:32:00Large *ABN*(09/14/15 7:32 PM)[facility] STOOL 2015-09-15 00:32:0011[facility] CDAPZ8109-03-68 00:32:007[facility] URINE AND XMTBW4224-53-45 00:32:00Slight *ABN*(09/14/15 7:32 PM)[facility] TWUPS1900-50-73 00:32:001.016 [facility] ZSKCW4424-40-15 00:32:00 Yellow *NA*(09/14/15 7:32 PM) [facility] IXBFN3925-83-53 00:32:002.0 [facility] KROAD2675-57-23 00:32:00Negative *NA*(09/14/15 7:32 PM) [facility] MHCVF2310-49-38 00:32:00Negative (09/14/15 7:32 PM) [facility]INE AND NKODQ0893-28-01 00:32:005.0 [facility]CARDIAC HWBXRKT4927-98-02 22:35:001.5 [facility] ACJNTRP6349-82-79 22:35:00<0.02[facility] CARDIAC OVYCYEL4883-72-12 22:35:0096 [facility] GEZEIOL4476-68-15 22:35:001.4 [facility]CHEM UPZWX4660-54-37 22:35:0025 [facility] PANEL 2015-09-14 22:35:0019 [facility] CPBIJ6418-72-60 22:35:003.4 [facility] CHE[facility] QGCVQ0541-94-20 22:35:0012.5 [facility] PVLKD8541-56-25 22:35:0025 [facility] KZHTT6673-63-66 22:35:000.4 [facility] YTZQZ6591-53-26 22:35:001.1MH SoutheastCHEM ZVSMM4172-91-63 22:35:0036[facility]CHEM PANEL 2015-09-14 22:35:003.6MH SoutheastCHEM WTBUV7452-61-96 22:35:00131CJ [facility] CHEM WYIIM5713-56-40 22:35:007.0 [facility] VQKYQ1258-51-98 22:35:0037MH SoutheastCHEM YNJXT7630-77-21 22:35:003.5 [facility] CZKND0777-48-38 22:35:45207QL [facility] ZMUFM8687-24-12 22:35:001.50 [facility] PANEL 2015-09-14 22:35:48688MY [facility] HVVNO1572-38-30 22:35:0025 [facility] CHE[facility] UKCRU2935-47-49 22:35:008.6MH SoutheastCHEM KXDPD7275-24-85 22:35:99460YJ WirwvndleVMEJIFTRNV5026-93-83 22:35:000.1MH DczodukroGIPOVAMRHI8288-90-58 22:35:002.8 KvlbtituiMWKRFGSGRF3682-44-86 22:35:000.7 [facility] 2015-09-14 22:35:005.7 XsqiroicwINEBZTZHNZ7214-63-52 22:35:000.4[facility] AKJCZKNQDN5222-98-55 22:35:007.9 OzeoytttyQHFVAHHBDH3337-51-01 22:35:001.3MH XwgforbqaJOXGSINYEP6613-30-40 22:35:0030.0 TqwxuyhzkRJZUELWCPE6715-41-59 22:35:0060.4 SgwuzlxigVKXIGSLREZ7648-64-00 22:35:00* Test Item Value Reference Range Interpretation Comments PTT (test code = PTT) 30.3 s 22.9-35.8 WuoqmisgrYJDCVGJGRH9307-63-46 22:35:009.3M VzekqohogBEGABEWOWV5785-78-84 22:35:0088.0 ZtteeenyxCHTJIFGUAY1982-82-68 22:35:00* Test Item Value Reference Range Interpretation Comments MCH (test code = MCH) 29.1 pg 27.0-31.0 ClhneeosgVWBRXRFAZA4814-35-46 22:35:01309JI AnotsduqpFIUWJGHFZG3839-86-84 22:35:0033.1MH PxsaxzqgfRUWVRPEWZA8626-11-24 22:35:0014.4[facility] 2015-09-14 22:35:009.4[facility] HospitalHkltwldfwDPKVFNRAPO9259-21-06 22:35:0013.4[facility]2016-07-01 22:35:0040.5[facility] CenterZdzwfqppfJBJEMXMSRI5639-26-74 22:35:004.60[facility] CenterBcgvckvvgKJSBYVYDHR1876-98-17 22:35:00* Test Item Value Reference Range Interpretation Comments PT (test code = PT) 14.6 s 12.0-14.7 [facility] CenterEivhnliiqNABTVKXWIF1943-06-74 22:35:001.11[facility]
[2019-08-17] MEDS ORDERED: KETOROLAC TROMETHAMINE 30 MG/ML VIAL IV STA (14:51)
--- NOTE | 2019-08-17 14:51 | Emergency Department Note ---
History of Present Illnes History of Present Illness Chief Complaint: General Medicine Complaints History of Present Illness This is a 69 year old female with a history of HTN and NIDDM, who presents for evaluation of recurrent neck pain. Pt has had cervical fusion/surgery in 2007 in [place]. t states htat for hte past 3 days, she has had pain of the posterior neck, with increased pain on rotating head from L to R and when looking downward. She denies any radiation of the pain into the arms, and she has had no numbness or tingling of the shoulders, back or arms. No upper extremity weakness and no bowel or bladder changes. Pt was seen here on 03/27/2019, with similar symptoms and had a CT of hte neck performed. She also received IM Toradol and Valium, which she states helped a great deal. The CT scan performed here 03/2019 is reviewed and revealed: "severe canal stenosis of C3 -C4, mild canal stenosis at C4 - C5, severe canal stenosis at C6- C7 and mild canal stenosis of C6 -C7. Pt did not follow-up with her PCP, regarding these results. Pt also denies being under the care of pain managment. She states that her PCP, Dr. Almodovar fills all of her medications, including the Oxycodone. Historian: Patient Arrival Mode: Car Psych Coordinator Required: No Onset (how long ago): day(s) (3) Location: See HPI Quality: See HPI Radiation: non-radiation Severity: severe Onset quality: sudden (pt awoke with pain in the posterior neck. ) Duration (how long): day(s) (3) Timing of current episode: constant Progression: unchanged Chronicity: recurrent Context: other (denies recent surgery and no trauma or falls) Relieving factors: none, other (pt has muscle relaxer and pain medications at home that she is not taking) Exacerbating factors: movement (pain on rotation of head left to right and on flexion of the neck) Associated symptoms: denies other symptoms Treatments prior to arrival: none Risk factors: Previous cervical spine surgery, though remote; diabetes Previous service: medications given Past Medical/Family History Physician Review I have reviewed the patient's past medical and family history. Any updates have been documented here. Past Medical History Recent Fever: No Clinical Suspicion of Infectio: No New/Unexplained Change in Ment: No Past Medical History: Hypertension, Diabetes, Hypothyroidism, Migraines, Anxiety, Hyperlipedemia Past Surgical History: CABG Other Surgery: CABG, left wrist surgery cervical spine surgery 2007 Social History Smoking Cessation: Never Smoker Alcohol Use: None Any Illegal Drug Use: No TB Exposure/Symptoms: No Physically hurt or threatened: No Family History Family history of heart diseas: No Other Last Tetanus: UNK Any Pre-Existing Lines (PICC,: No Is patient up to date on immun: No Review of Systems Review of Systems Constitutional: no symptoms EENTM: no symptoms Cardiovascular: no symptoms Respiratory: no symptoms Gastrointestinal: no symptoms Genitourinary: no symptoms Musculoskeletal: muscle pain, muscle stiffness, neck pain Neurological: no symptoms Review of other systems All other systems reviewed and negative. Physical Exam Related Data Allergies: Coded Allergies: No Known Allergies (Unverified , 11/04/18) Triage Vital Signs T = 97.8, B/P = 148/85, P = 66, R = 18, O2 Sats = 97% RA Vital signs reviewed: Yes Physical Exam CONSTITUTIONAL Constitutional: well-developed, well-nourished, obese HENT HENT: normocephalic, atraumatic, oropharynx clear/moist, nose normal HENT L/R: left ext ear normal, right ext ear normal EYES Eyes: PERRL, conjunctivae normal NECK Neck: other (ttp of bilateral cervical paraspinal muscles, no cervical vertebral point tenderness, no crepitus;) PULMONARY Pulmonary: effort normal, breath sounds normal CARDIOVASCULAR Cardiovascular: regular rhythm, heart sounds normal, capillary refill normal, normal rate GASTROINTESTINAL GENITOURINARY SKIN Skin: warm, dry MUSCULOSKELETAL NEUROLOGICAL Neurological: alert, oriented x 3, no gross motor or sensory deficits PSYCHOLOGICAL Psychological: mood/affect normal, judgement normal Results Laboratory Lab results reviewed: Yes Laboratory comments Random glucose = 105 mg/dl (checked before prescribing steroids) Imaging Impressions CT scan from 03/27/2019, performed here, was reviewed. Critical Care Time Subsequent provider I assumed direction of critical care for this patient from another provider of my specialty. Assessment & Plan Assessment & Plan Final Impression: (1) CERVICALGIA (2) SPINAL STENOSIS, CERVICAL REGION (3) OTHER CERVICAL DISC DEGENERATION, UNSP CERVICAL REGION (4) TYPE 2 DIABETES MELLITUS WITH UNSPECIFIED COMPLICATIONS (5) ESSENTIAL (PRIMARY) HYPERTENSION Assessment & Plan Monitor blood sugars twice daily, while taking the Prednisone, and STOP the Prednisone, if you have 2 consecutive blood sugar readings of 200, or greater. Follow-up with your Primary Care Physician, regarding the abnormal findings seen on CT scan of neck from 03/2019. You may need a referral to a Neurosurgeon, for evaluation of "Cervical Spinal Stenosis." - pt provided with disc containing the CT of cspine from 03/2019. Explained that she will likely need an MRI of her neck for Take the "Tizanadine and Oxycodone," as prescribed, for the neck pain. Pt has NOT been taking either of these medications. * Return to the ER, if symptoms worsen, or if you develop numbness, tingling or weakness of your arms or legs Depart Disposition: HOME, SELF-long term Meds Active Scripts Prednisone (PREDNISONE) 20 Mg Tab, 20 MG PO DAILY for inflammation for 7 Days, #7 TAB 0 Refills Prov:LORAINE MENDENHALL MD 08/17/19 Reported Medications Oxycodone Hcl/Acetaminophen (PERCOCET 10-325 MG TABLET) 1 Each Tablet, 1 TAB PO Q6H PRN for SEVERE PAIN (7-10) 03/27/19 Aspirin (ASPIRIN) 81 Mg Tab.chew 11/05/18 Oxymetazoline Hcl (AFRIN) 30 Ml [place] 11/05/18 Pregabalin (LYRICA) 50 Mg Cap, 100 MG PO BID PRN for pain, #30 TAB 11/05/18 Metformin Hcl (METFORMIN HCL) 500 Mg Tablet, 500 MG PO BID, #60 TAB 11/05/18 Metoprolol Succinate (METOPROLOL SUCCINATE) 25 Mg Tab.er.24h, DAILY 11/05/18 Levothyroxine Sodium (LEVOTHYROXINE SODIUM) 75 Mcg Tablet, 75 MCG PO DAILY, #30 TAB 11/05/18 Atorvastatin Calcium (ATORVASTATIN CALCIUM) 20 Mg Tablet, 40 MG PO DAILY, #30 TAB 11/05/18 Escitalopram Oxalate (ESCITALOPRAM OXALATE) 20 Mg Tablet, 20 MG PO DAILY PRN for ANXIETY 11/05/18 Telmisartan (MICARDIS) 40 Mg Tab, 40 MG PO DAILY, #30 TAB 11/05/18 Omeprazole (OMEPRAZOLE) 40 Mg Capsule.dr, 20 MG PO 11/05/18 Acetaminophen (ACETAMINOPHEN) 325 Mg Tablet, 500 MG PO for 5 Days, TAB 11/05/18 Tizanidine Hcl (TIZANIDINE HCL) 4 Mg Tablet, 4 MG PO HS, TAB 11/05/18 LORAINE MENDENHALL MD Aug 17, 2019 14:51
[2019-08-17] MEDS ORDERED: DIAZEPAM INJ 5 MG/ML 2 ML IM ONE (15:00)
[2019-08-17] MEDS ORDERED: DIAZEPAM INJ 5 MG/ML 2 ML ONE (15:09)
[2019-08-17] MEDS ORDERED: KETOROLAC TROMETHAMINE 30 MG/ML VIAL ONE (15:09)
[2019-08-17] MEDS ORDERED: KETOROLAC TROMETHAMINE 30 MG/ML VIAL IM STA (15:12)
[2019-08-17] MEDS ORDERED: PREDNISONE 20 MG TAB PO ONE (15:45)
[2019-08-17] MEDS ORDERED: PREDNISONE20 MG PO (15:58)
[2019-08-17] MEDS ORDERED: PREDNISONE 20 MG TAB ONE (16:13)
[2019-08-17 17:27] VITALS: BP 143/63
== END 2019-08-17 14:14 | disposition home or self-care (01) ==
LOC: FSED 12:27
DX: M48.02 Spinal stenosis, cervical region (principal); M50.30 Other cervical disc degeneration, unspecified cervical region; E11.65 Type 2 diabetes mellitus with hyperglycemia; I10 Essential (primary) hypertension
CPT/HCPCS: 96372; 99283; J1885; J3360; J7512

== ENCOUNTER 2019-10-20 13:44 | Emergency (ER) | payer MEDICARE ==
[~2019-10-20] VITALS: Ht 154.9 cm; Wt 73.5 kg
[~2019-10-20 13:44] MED LIST changes: +PREDNISONE20 MG PO
--- NOTE | 2019-10-20 14:26 | Emergency Department Note ---
History of Present Illnes History of Present Illness Chief Complaint: General Medicine Complaints History of Present Illness This is a 69 year old female Chief Complaint Comment Reports that for 2 days she has had right sided neck pain and right shoulder pain. She gets injections about every 3 months. . Historian: Patient Arrival Mode: Car Onset (how long ago): day(s) (2) Location: neck Quality: sharp Radiation: Reports extremity Severity: moderate Onset quality: gradual Duration (how long): day(s) (3) Timing of current episode: intermittent Progression: waxing and waning Chronicity: new Context: Denies recent illness, Denies recent surgery, Denies recent immobilization, Denies recent travel, Denies trauma/injury, Denies new medications, Denies hx of DVT/PE, Denies non-compliance w/ medications, Denies other Relieving factors: none Exacerbating factors: none Associated symptoms: Reports denies other symptoms Treatments prior to arrival: none Past Medical/Family History Physician Review I have reviewed the patient's past medical and family history. Any updates have been documented here. Past Medical History Recent Fever: No Clinical Suspicion of Infectio: No New/Unexplained Change in Ment: No Past Medical History: Hypertension, Diabetes, Hypothyroidism, CAD, Anxiety, GERD, Hyperlipedemia Past Surgical History: CABG Other Surgery: left arm surgery neck surgery open heart surgery Social History Counseling Performed: Yes Alcohol Use: Occasional Any Illegal Drug Use: No Physically hurt or threatened: No Other Last Tetanus: UNK Any Pre-Existing Lines (PICC,: No Review of Systems Review of Systems Constitutional: Reports no symptoms EENTM: Reports no symptoms Cardiovascular: Reports no symptoms Respiratory: Reports no symptoms Gastrointestinal: Reports no symptoms Genitourinary: Reports no symptoms Musculoskeletal: Reports as per HPI Integumentary: Reports no symptoms Neurological: Reports no symptoms Psychological: Reports no symptoms Endocrine: Reports no symptoms Hematological/Lymphatic: Reports no symptoms Physical Exam Related Data Allergies: Coded Allergies: No Known Allergies (Unverified , 11/04/18) Triage Vital Signs Vital Signs Date Time Temp Pulse Resp B/P (MAP) Pulse Ox O2 Delivery O2 Flow Rate FiO2 10/20/19 14:00 98.7 75 18 152/69 96 Room Air Vital signs reviewed: Yes Physical Exam CONSTITUTIONAL Constitutional: Present well-developed, Present well-nourished HENT HENT: Present normocephalic, Present atraumatic, Present oropharynx clear/moist, Present nose normal HENT L/R: Present left ext ear normal, Present right ext ear normal EYES Eyes: Reports PERRL, Reports conjunctivae normal NECK Neck: Present ROM normal, Present other (tenderness) PULMONARY Pulmonary: Present effort normal, Present breath sounds normal CARDIOVASCULAR Cardiovascular: Present regular rhythm, Present heart sounds normal, Present capillary refill normal, Present normal rate GASTROINTESTINAL Abdominal: Present soft, Present nontender, Present bowel sounds normal GENITOURINARY Genitourinary: Present exam deferred SKIN Skin: Present warm, Present dry MUSCULOSKELETAL Musculoskeletal: Present ROM normal NEUROLOGICAL Neurological: Present alert, Present oriented x 3, Present no gross motor or sensory deficits PSYCHOLOGICAL Psychological: Present mood/affect normal, Present judgement normal Assessment & Plan Medical Decision Making MDM radiculopathy muscular Reassessment Reassessment time: 14:31 Reassessment better Assessment & Plan Final Impression: (1) Radiculopathy, cervical Depart Disposition: HOME, SELF-CARE Last Vital Signs Date Time Temp Pulse Resp B/P (MAP) Pulse Ox O2 Delivery O2 Flow Rate FiO2 10/20/19 14:00 98.7 75 18 152/69 96 Room Air Home Meds Reported Medications Telmisartan/Hydrochlorothiazid (MICARDIS HCT 40-12.5 MG TABLET) 1 Each Tablet, DAILY 10/20/19 Oxycodone Hcl/Acetaminophen (PERCOCET 10-325 MG TABLET) 1 Each Tablet, 1 TAB PO Q6H PRN for SEVERE PAIN (7-10) 03/27/19 Aspirin (ASPIRIN) 81 Mg Tab.chew 11/05/18 Oxymetazoline Hcl (AFRIN) 30 Ml [place] 11/05/18 Pregabalin (LYRICA) 50 Mg Cap, 75 MG PO TID PRN for pain, #30 TAB 11/05/18 Metformin Hcl (METFORMIN HCL) 500 Mg Tablet, 500 MG PO BID, #60 TAB 11/05/18 Metoprolol Succinate (METOPROLOL SUCCINATE) 25 Mg Tab.er.24h, DAILY 11/05/18 Levothyroxine Sodium (LEVOTHYROXINE SODIUM) 75 Mcg Tablet, 75 MCG PO DAILY, #30 TAB 11/05/18 Atorvastatin Calcium (ATORVASTATIN CALCIUM) 20 Mg Tablet, 40 MG PO DAILY, #30 TAB 11/05/18 Escitalopram Oxalate (ESCITALOPRAM OXALATE) 20 Mg Tablet, 20 MG PO DAILY PRN for ANXIETY 11/05/18 Omeprazole (OMEPRAZOLE) 40 Mg Capsule.dr, 20 MG PO 11/05/18 Acetaminophen (ACETAMINOPHEN) 325 Mg Tablet, 500 MG PO for 5 Days, TAB 11/05/18 Tizanidine Hcl (TIZANIDINE HCL) 4 Mg Tablet, 4 MG PO HS, TAB 11/05/18 Discontinued Reported Medications Telmisartan (MICARDIS) 40 Mg Tab, 40 MG PO DAILY, #30 TAB 11/05/18 Discontinued Scripts Prednisone (PREDNISONE) 20 Mg Tab, 20 MG PO DAILY for inflammation for 7 Days, #7 TAB 0 Refills Prov:LORAINE MENDENHALL MD 08/17/19 SHRUTI LOVE MD Oct 20, 2019 14:26
[2019-10-20] MEDS ORDERED: MICARDIS HCT 41 EACH (14:27)
[2019-10-20] MEDS ORDERED: DEXAMETHASONE SOD PHOS 10 MG/1 ML VIAL IM ONE (14:30)
--- OUTSIDE RECORDS SUMMARY | 2019-10-20 15:00 | XMS REPORT | Continuity of Care Document ---
Author Author Shellie ECOSERVANDO [facility] ECO Address Unknown Phone Unavailable Care Team Providers Care Machinist Mate Name Role Phone [facility] Unavailable Un available Problems Problem Status Onset Date Classification Date Reported Comments Source Localized edema 02/02/2018 08/17/2018 [facility] R60.0 Active 01/26/2018 [facility] Discharge Diagnosis: Acute cystitis without hematuria 09/14/2015 09/17/2015 [facility] Discharge Diagnosis: Benign paroxysmal v ertigo, right ear 09/14/2015 09/17/2015 [facility] Discharge Diagnosis: Dehydration 09/14/2015 09/17/2015 [facility] DIZZINESS Active 09/14/2015 [facility] Diabetes mellitus (disorder) A ctive Problem [facility] Hypertensive disorder, systemic arterial (disorder) Active Problem 02/06/2019 [facility]D Graves[facility] Hypothyroidism (disorder) Acti ve Problem [facility]D Graves,[facility] Encounter for screening mammogram for ma lignant neoplasm of breast 02/06/2019 BOYD Graves, BOYD Valentino LOCALIZED EDEMA Active [facility] Medications Medication Details Route Status Patient Instructions Ordering Provider Order Date Source Sulfamethoxazole 800 MG / Trimethoprim 1 60 MG Oral Tablet [Bactrim] 1 tab, PO, BID, for UTI, X 3 day, # 6 ta b, 0 Refill(s) Active 09/15/2015 [facility] meclizine 25 mg oral tablet 25 mg = 1 tab, PO, TID, PRN dizziness, X 10 day, # 30 tab, 0 Refill(s) Active 09/15/2015 [facility] Saline Flush 0.9% Notes: (Same as: BD Posiflush) Inactive 09/14/2015 [facility] Allergies, Adverse Reactions, Alerts Substance Category Reaction Severity Reaction type Status Date Reported Comments Source No Known Medication Allergies Assertion Drug aller gy [facility] [place] Immunizations No Data Provided for This Section Results Order Name Results Value Reference Range Date Interpretation Comments Source URINE AND STOOL UA Bacteria Occasional /HPF None Seen /HPF 09/15/[address] [facility] [address] URINE AND STOOL UA Hyal Cast 2 0 - 2 09/15/2015 [facility] URINE AND STOOL UA Nitrite Negative (09/14/15 7:32 PM) Negative 09/15/2015 [facility] URINE AND STOOL UA Leuk Est Large *ABN* (09/14/15 7:32 PM) Negative 09/15/2015 [facility] URINE AND STOOL UA Sq Epi Occasional /LPF Few /LPF 09/15/2015 [facility] URINE AND STOOL UA WBC 11 0 - 5 09/15/2015 [facility] URINE AND STOOL UA RBC 7 0 - 2 09/15/2015 [facility] URINE AND STOOL UA Turbidity Slight *ABN* (09/14/15 7:32 PM) Clear 09/15/2015 [facility] URINE AND STOOL UA Spec Grav 1.016 <=1.030 09/15/2015 [facility] URINE AND STOOL UA Color Yellow *NA* (09/14/15 7:32 PM) Yellow 09/15/2015 [facility] URINE AND STOOL UA Urobilinogen 2.0 0.1 - 1.0 09/15/2015 [facility] URINE AND STOOL UA Bili Negative *NA* (09/14/15 7:32 PM) Negative 09/15/2015 [facility] URINE AND STOOL UA Blood Negative (09/14/15 7:32 PM) Negative 09/15/2015 [facility] URINE AND STOOL UA Ketones Negative mg/dL Negative mg/dL 09/15/2015 [facility] URINE AND STOOL UA Glucose Negative mg/dL Negative mg/dL 09/15/[address] [facility] [address] URINE AND STOOL UA Protein Negative mg/dL Negative mg/dL 09/15/2015 [facility] URINE AND STOOL UA pH 5.0 5.0 - 8.0 09/15/2015 [facility] CARDIAC ENZYMES CK MB Index 1.5 0.0 - 2.5 09/14/2015 [facility] CARDIAC ENZYMES Troponin-I <0.02 0.00 - 0.40 09/14/2015 [facility] CARDIAC ENZYMES Total CK 96 12 - 191 09/14/2015 [facility] CARDIAC ENZYMES CK MB 1.4 0.5 - 3.6 09/14/2015 [facility] CHEM PANEL ALT 25 0 - 65 09/14/2015 [facility] CHEM PANEL AST 19 0 - 37 09/14/2015 [facility] CHEM PANEL Globulin 3.4 2.0 - 4.0 09/14/2015 [facility] CHEM PANEL AGAP 12.5 10.0 - 20.0 09/14/2015 [facility] CHEM PANEL B/C Ratio 25 6 - 25 09/14/2015 [facility] CHEM PANEL Bili Total 0.4 0.2 [...] should be multiplied by the estimated BMI. [facility] CHEM PANEL Albumin Lvl 3.6 3.5 - 5.0 09/14/2015 [facility] CHEM PANEL Alk Phos 133 39 - 136 09/14/2015 [facility] CHEM PANEL Total Protein 7.0 6.4 - 8.4 09/14/2015 [facility] CHEM PANEL BUN 37 7 - 22 09/14/2015 [facility] CHEM PANEL Potassium Lvl 3.5 3.5 - 5.1 09/14/2015 [facility] CHEM PANEL Chloride Lvl 106 95 - 109 09/14/2015 [facility] CHEM PANEL Creatinine Lvl 1.50 0.50 - 1.40 09/14/2015 [facility] CHEM PANEL Sodium Lvl 140 135 - 145 09/14/2015 [facility] CHEM PANEL CO2 25 24 - 32 09/14/2015 [facility] CHEM PANEL Calcium Lvl 8.6 8.5 - 10.5 09/14/2015 [facility] CHEM PANEL Glucose Lvl 110 70 - 99 09/14/2015 [facility] HEMATOLOGY Eosinophils # 0.1 0.0 - 0.5 09/14/2015 [facility] HEMATOLOGY Lymphocytes # 2.8 1.0 - 5.5 09/14/2015 [facility] HEMATOLOGY Monocytes # 0.7 0.0 - 0.8 09/14/2015 [facility] HEMATOLOGY Segs-Bands # 5.7 1.5 - 8.1 09/14/2015 [facility] HEMATOLOGY Basophils 0.4 0.0 - 1.0 09/14/2015 [facility] HEMATOLOGY Monocytes 7.9 2.0 - 12.0 09/14/2015 [facility] Eosinophils 1.3 0.0 - 4.0 09/14/2015 [facility] Lymphocytes 30.0 20.0 - 40.0 09/14/2015 [facility] Segs 60.4 45.0 - 75.0 09/14/2015 [facility] PTT 30.3 22.9 - 35.8 09/14/2015 [facility] MPV 9.3 7.4 - 10.4 09/14/2015 [facility] MCV 88.0 80.0 - 98.0 09/14/2015 [facility] MCH 29.1 27.0 - 31.0 09/14/2015 [facility] Platelet 234 133 - 450 09/14/2015 [facility] MCHC 33.1 32.0 - 36.0 09/14/2015 [facility] RDW 14.4 11.5 - 14.5 09/14/2015 [facility] WBC 9.4 3.7 - 10.4 09/14/2015 [facility] Hgb 13.4 12.0 - 16.0 09/14/2015 [facility] Hct 40.5 36.0 - 48.0 09/14/2015 [facility] RBC 4.60 4.20 - 5.40 09/14/2015 [facility] HEMATOLOGY PT 14.6 12.0 - 14.7 09/14/2015 [facility] HEMATOLOGY INR 1.11 0.85 - 1.17 09/14/2015 [facility] Pathology Reports No Data Provided for [...] made to exam dated: 05/26/2017 mammogram - [facility]. TECHNIQUE: Mammographic views were obtained using digital [...] is recommended.(02/04/2020) This exam was interpreted at [id number] for DALIA Arroyo 15. Professional services are provided by the [facility] Division of Diagnostic Imaging. Nazia Domínguez M.D. ms/rolanda:02/04/2019 08:36:47 Veneer Layer(s): RT Walker(R)(M), [facility] letter sent: BI-RADS 1/2 Mammogram [...] hemodynami eddie significant peripheral vascular disease. SL: [id number] 01/27/2018 [facility] Breast Mammo Scrn LARISSA incl CAD [...] is recommended.(05/27/2018) This exam was interpreted at [id number] for DALIA Bowman 15. Professional services are provided by the [facility] Division of Diagnostic Imaging. Jamar Buck M.D. [email or web address]/[email or web address]:05/26/2017 14:14:49 [place]eneer Layer(s): RT Justus(R)(M), [facility] letter sent: BI-RADS 1/2 Mammogram BI-RADS: 2 Benign 05/26/2017 [facility] Chest 1view DX Study: Chest 1v iew DX 09/14/2015 5:00 PM CDT Patient Name: SERVANDO GIANG MR: [id number] : 1950; Age: 65 years y/o Female [...] as above discus sed. SL: TPAINTER-PC 09/14/2015 [facility] Consultation Notes No Data Provided for This Section Discharge Summaries No Data Provided for This Section History and Physicals No Data Provided for This Section Vital Signs Vital Sign Value Date Comments Source Systolic (mm Hg) 148 09/15/2015 [facility] Diastolic (mm Hg) 53 09/15/2015 [facility] Temperature Oral (F) 98 F 09/15/2015 [facility] Respitory Rate 18 09/15/2015 [facility] Systolic (mm Hg) 102 09/14/2015 [facility] Diastolic (mm Hg) 37 09/14/2015 [facility] Respitory Rate 16 09/14/2015 [facility] Systolic (mm Hg) 102 09/14/2015 [facility] Diastolic (mm Hg) 68 09/14/2015 [facility] Respitory Rate 20 09/14/2015 [facility] Heart Rate 71 09/14/2015 [facility] Weight 81.818 09/14/2015 [facility] BMI Calculated 34.08 09/14/2015 [facility] Height 154.94 cm 09/14/2015 [facility] Temperature Oral (F) 97.6 F 09/14/2015 [facility] Encounters Location Location Details Encounter Type Encounter Number Reason For Visit Attending Provider ADM Date DC Date [facility] [id number] Rich Marinelli 09/14/2015 09/15/2015 [facility] [place] [facility] [id number] Maylin Sánchezcardo 05/26/2017 [facility]27[id number] Maylin Almodovar-Suresh 01/27/2018 01/28/2018 [facility] - [place] [facility] [id number] Maylin Boccardo-Suresh 10/19/2018 10/20/2018 [facility] [place] [facility] [place] [facility] [id number] Maylinshannon Sánchezcardo-Suresh 02/03/2019 02/04/2019 BO[place]D [place] Procedures Procedure Code Date Perfomer Comments Source CABG x 3 - Coronary artery bypass grafts x 3 [id number] BOYD Graves, BOYD Valentino,[facility] Nerve operation [id number] BOYD Graves, BOYD Valentino,[facility] Assessment and Plan No Data Provided [...] Yes entered on: 09/14/15 09/14/2015 ANITA NIX [place] Family History No Data Provided for This Section Advance Directives No Data Provided for This Section Functional Status No Data Provided for This Section
--- OUTSIDE RECORDS SUMMARY | 2019-10-20 15:01 | XMS REPORT | Continuity of Care Document ---
Author Author [facility] t Organization [facility] Address [address] [place] [address] Phone Unavailable Care Team Providers Care Candle Molder Hand Name Role Phone IWONA RALPH, MD RIBEIRO PCP Shankar NORWOOD Attphys Unavailable Boccardo-Suresh, Maylin Attphys POOL SIMMONS Attphys Unavailable Boccardo, Maylin Attphys Rich Marinelli Attphys IRIS POOL Admphys Unavailable Boccardo-Suresh, Maylin Admphys Payers Payer Name Policy Type Policy Number Effective Date Expiration Date [facility] [id number] [facility] Problems Condition Name Condition Details Condition Category Status Onset Date Resolution Date Last Treatment Date Treating Clinician Comments Source R60.0 R60. 0 Active 01/26/2018 [facility] Active 2018-01-26 00:00:00 2018-01-27 09:58:00 [facility] DI[facility] INESS Active 09/14/2015 [facility] Active 2015-09-14 00:00:00 2016-09-09 08:08:00 [facility] Gastroenteritis Gastroenteritis Problem Active [facility] Hypotension due to hypovolemia Hypotension due to hypovolemia Problem Active [facility] Acute renal failure superimposed on chronic kidney dis ease Renal failure (ARF), acute on chronic Problem Active [facility] Encounter for screening mammogram for malignant neopla sm of breast Encounter for screening mammogram for malignant neoplasm of breast 02/06/2019 BOYD Graves BOYD Vickersa Problem 2019-02-06 00:09:40 [facility] Miguel Diabetes mellitus (disorder) D iabetes mellitus (disorder) Active Problem 02/06/2019 BOYD Graves, BOYD Vickersa, [facility] Problem Active 2019-02-06 00:09:40 Lorne Rivera Hypertensive disorder, systemic arterial (disorder) Hypertensive disorder, systemic arterial (disorder) Active Problem 02/06/2019 BOYD Graves, BOYD Vickersa, [facility] Problem Ac tive 2019-02-06 00:09:40 [facility] damaso Hypothyroidism (disorder) Hypo thyroidism (disorder) Active Problem 02/06/2019 BOYD Graves, BOYD Vickersa, [facility] Problem Active 2019-02-06 00:09:40 Leonor Rivera LOCALIZED EDEMA LOCA LIZED EDEMA Active [facility] Active 2018-01-27 09:58:00 [facility] Localized edema Loca lized edema 02/02/2018 08/17/2018 [facility] Problem 2018-02-02 05:02:10 2018-08-17 11:16:33 2018-08 11:16:33 [facility] Discharge Diagnosis: Acute cystitis without hematuria Discharge Diagnosis: Acute cystitis without hematuria 09/14/2015 09/17/2015 [facility] Problem 2015-09-14 05:00:00 2015-09-17 03:55:03 2015-09 03:55:03 [facility] Discharge Diagnosis: Benign paroxysmal vertigo, right ear Discharge Diagnosis: Benign paroxysmal vertigo, right ear 09/14/2015 09/17/2015 [facility] Problem 2015-09-14 05:00:00 2015-09-17 03:55:03 2 03:55:03 [facility] Discharge Diagnosis: Dehydration Discharge Diagnosis: Dehydration 09/14/2015 09/17/2015 [facility] Problem 20 28-09-00 05:00:00 2015-09-17 03:55:03 2015-09-17 03:55:03 [facility] Allergies, Adverse Reactions, Alerts Allergy Name Allergy Type Status Severity Reaction(s) Onset Date Inacti ve Date Treating Clinician Comments Source No Known Medication Allergies No Known Medication Allergies Active [facility] Social History Social Habit Start Date Stop Date Quantity Comments Source Sex Assigned At 1950 00:00:00 1950 00:00:00 Female [facility] Smoking Status Start Date Stop Date Source Social History 2015-09-14 22:30:[address] [facility] Medications Ordered Medication Name Filled Medication Name Start Date Stop Da te Current Medication? Ordering Clinician Indication Dosage Frequency Signature (SIG) Comments Components Source Prednisone Prednisone 2019-08-17 15:58:00 Yes 20 Daily for Inflammation [facility] Metronidazole (Flagyl) 500 Mg TABLET Metronidazole (Flagyl) 500 Mg TABLET 2018-11-06 05:48:00 2019-03-27 00:00:00 No 500 Three Times A Day [facility] Ondansetron Hcl (Zofran*) 4 Mg TABLET Ondansetron Hcl (Zofra n*) 4 Mg TABLET 2018-11-06 05:48:00 2019-03-27 00:00:00 No 4 Every 4 Hours as needed for Nausea/Vomiting [facility] Sulfamethoxazole 800 MG / Trimethoprim 160 MG Oral Tablet [B actrim] 2015-09-15 00:59:00 Yes 1 tab, PO, BID, for UT I, X 3 day, # 6 tab, 0 Refill(s) [facility] meclizine 25 mg oral tablet 2015-09-15 00:59:00 Yes 25 mg = 1 tab, PO, TID, PRN dizziness, X 10 day, # 30 tab, 0 Refill(s) [facility] Saline Flush 0.9% 2015-09-14 22:00:00 No Notes: (Same as: BD Posiflush) [facility] Acetaminophen Acetaminophen Yes 500 [facility] Aspirin Aspirin Yes [facility] Atorvastatin Calcium Atorvastatin Calcium Yes 40 Daily [facility] Escitalopram Oxalate Escitalopram Oxalate Yes 20 Daily as needed for Anxiety [facility] Levothyroxine Sodium Levothyroxine Sodium Yes 75 Daily [facility] Metformin Hcl Metformin Hcl Yes 500 Twice A Day [facility] Metoprolol Succinate Metoprolol Succinate Yes Daily [facility] Omeprazole Omeprazole Yes 20 [facility] Oxycodone Hcl/Acetaminophen (Percocet 10-325 Mg Tablet ) 1 Each TABLET Oxycodone Hcl/Acetaminophen (Percocet 10-325 Mg Tablet) 1 Each TABLET Yes 1 Every 6 Hours as needed for Severe Pain (7-10) [facility] Oxymetazoline Hcl (Afrin) 30 Ml SPRAY Oxymetazoline Hcl (Afrin) 30 Ml SPRAY Yes [facility] Pregabalin (Lyrica) 50 Mg CAP Pregabalin (Lyrica) 50 Mg CAP Yes 100 Twice A Day as needed for Pain [facility] Telmisartan (Micardis) 40 Mg TAB Telmisartan (Micardis) 40 Mg TAB Yes 40 Daily [facility] Tizanidine Hcl Tizanidine Hcl Yes 4 Bedtime [facility] Albuterol Sulfate (Proair Hfa Inhaler*) 8.5 Gm INH Alb uterol Sulfate (Proair Hfa Inhaler*) 8.5 Gm INH 2019-03-27 00:00:00 No 90 [facility] Cholecalciferol (Vitamin D3) (Vitamin D) 1,000 Unit TA BLET Cholecalciferol (Vitamin D3) (Vitamin D) 1,000 Unit TABLET 2019-03-27 00:00:00 No 125 Daily [facility] Hydrocodone Bit/Acetaminophen (Hydrocodon-Acetaminophn 10-325) 1 Each TABLET Hydrocodone Bit/Acetaminophen (Hydrocodon-Acetaminophn 10-325) 1 Each TABLET 2019-03-27 00:00:00 No Four Times Daily as needed for Pain [facility] Loperamide Hcl (Imodium*) 2 Mg CAP Loperamide Hcl (Imodium*) 2 M g CAP 2019-03-27 00:00:00 No 2 [facility] Oxymetazoline Hcl (Afrin) 30 Ml SPRAY Oxymetazoline Hcl (Afrin) 30 Ml SPRAY 2019-03-27 00:00:00 No [facility] Levofloxacin (Levaquin) 500 Mg TABLET Levofloxacin (Levaquin) 50 0 Mg TABLET 2018-11-06 00:00:00 No 500 Daily [facility] Vital Signs Vital Name Observation Time Observation Value Comments Source Body Temperature 2019-08-17 17:27:00 97.5 [degF] [facility] Weight 2019-08-17 13:36:00 163 [lb_av] [facility] BMI (Body Mass Index) 2019-08-17 13:36:00 30.8 kg/m2 [facility] Systolic (mm Hg) 2015-09-15 01:00:00 Lorne rial Miguel Diastolic (mm Hg) 2015-09-15 01:00:00 Mem orial Miguel Temperature Oral (F) 2015-09-15 01:00:00 98 F [facility] Respitory Rate 2015-09-15 01:00:00 Memori al Miguel Systolic (mm Hg) 2015-09-14 23:50:00 Lorne rial Miguel Diastolic (mm Hg) 2015-09-14 23:50:00 Mem orial Rowena Respitory Rate 2015-09-14 23:50:00 Memori al Miguel Systolic (mm Hg) 2015-09-14 22:30:00 Lrone rial Rowena Diastolic (mm Hg) 2015-09-14 22:30:00 Mem orial Miguel Respitory Rate 2015-09-14 22:30:00 [facility] Heart Rate 2015-09-14 21:50:00 [facility] Weight 2015-09-14 21:50:00 [facility] BMI Calculated 2015-09-14 21:50:00 [facility] Height 2015-09-14 21:50:00 154.94 cm [facility] Temperature Oral (F) 2015-09-14 21:50:00 97.6 F [facility] Procedures Procedure Date / Time Performed Performing Clinician Cheri moreira Ultrasound, renal 2018-11-05 00:00:00 POOL SIMMONS [facility] CABG x 3 - Coronary artery bypass grafts x 3 [facility] Nerve operation [facility] Plan of Care Planned Activity Planned Date Details Comments Source Instructions Cervical Radiculopathy [facility] Encounters Start Date/Time End Date/Time Encounter Type Admission Type Attendi [facility] Care Department Encounter ID Source 2019-08-17 12:27:00 2019-08-17 14:14:[address] [facility] [id number] [facility] [place] 2019-03-27 12:33:00 2019-03-27 14:55:00 Departed Emergency Room [address] [facility] [id number] [facility] 2019-02-03 15:44:00 2019-02-03 23:59:00 Outpatient Maylin Maher MHHOIP MHHOIP [id number] 2018-11-04 21:32:00 2018-11-06 17:07:00 Discharged Inpatient (obs) [address] [facility] [id number] I [facility] 2018-10-19 09:43:00 2018-10-19 23:59:00 Outpatient Maylin Maher MHHOIP MHHOIP [id number] 2018-01-27 09:58:00 2018-01-27 23:59:00 Outpatient Maylin Maher MHSE MHSE [id number] 2017-05-26 09:53:00 2017-05-26 23:59:00 Outpatient Maylin Jernigan [id number] 2015-09-14 16:47:00 2015-09-14 20:17:00 Outpatient Rich Marinelli MHSE MHSE [id number] Results Test Description Test Time Test Comments Results Result Comments Source CT C-SPINE W/O - HOPD 2019-03-27 14:59:00 [facility] [address] [place] [address] Patient Name: JOSE GIANGIA Erica MR #: [id number] : 1950 [facility]: 69[id number] #: [id number] [facility] Physician: Ordered by: SAE NORWOOD MD Report #: [id number] Location: [facility] Room/Bed: Procedure: [id number] HOPD/CT C-SPINE W/O - HOPD Exam Date: [...] Test Item Bedside Glucose (test code = 20974-6) 135 70-120 H Meter ID: [id number] Country Memorial HospitalCapillary blood glucose measurement by glucometer (mass/volume)2019-03-27 13:07:00* Test Item Value Reference Range Interpretation Comments Bedside Glucose (test code = 44514-0) 135 70-120 Meter ID: [id number] Country [facility] HospitalPhosphorus Level 2018-11-06 07:45:00* Test Item Value Reference Range Interpretation Comments Phosphorus Level (test code = KJF8377) 3.1 2.3-4.7 [facility] HospitalMagnesium [id number] 07:45:00* Test Item Value Reference Range Interpretation Comments Magnesium Level (test code = 57961-2) 1.6 1.3-2.1 [facility] HospitalPhosphorus Yvzmb3018-66-75 07:45:00* Test Item Value Reference Range Interpretation Comments Phosphorus Level (test code = LRC1782) 3.1 2.3-4.7 [facility] HospitalMagnesium Srzzq3723-95-51 07:45:00* Test Item Value Reference Range Interpretation Comments Magnesium Level (test code = 75315-4) 1.6 1.3-2.1 [facility] HospitalBlood Urea Dattvtbt8063-42-09 07:07:00* Test Item Value Reference Range Interpretation Comments Blood Urea Nitrogen (test code = 3094-0) 18 7-26 [facility] HospitalBUN/Creatinine Hbwfc8051-22-57 07:07:00* Test Item Value Reference Range Interpretation Comments BUN/Creatinine Ratio (test code = 3097-3) 09-07 [facility] HospitalBlood Urea Ytrgucfe5070-08-70 07:07:00* Test Item Value Reference Range Interpretation Comments Blood Urea Nitrogen (test code = 3094-0) 18 10-08 [facility] HospitalBUN/Creatinine Nlkfo9384-83-17 07:07:00* Test Item Value Reference Range Interpretation Comments BUN/Creatinine Ratio (test code = 3097-3) 09-07 [facility] Rgynf8880-27-92 06:49:00* Test Item Value Reference Range Interpretation Comments Sodium Level (test code = 2951-2) 144 136-145 [facility] HospitalPotassium Hvcks2181-36-80 06:49:00* Test Item Value Reference Range Interpretation Comments Potassium Level (test code = 2823-3) 4.5 3.5-5.1 [facility] HospitalChloride Ibewb3241-72-91 06:49:00* Test Item Value Reference Range Interpretation Comments Chloride Level (test code = 2075-0) 111 98-107 H [facility] HospitalCarbon Dioxide Yhyhm1190-98-37 06:49:00* Test Item Value Reference Range Interpretation Comments Carbon Dioxide Level (test code = 2028-9) 23 22-29 [facility] HospitalAnion Gqj6055-23-28 06:49:00* Test Item Value Reference Range Interpretation Comments Anion Gap (test code = 06876-4) 14.5 8-16 [facility] HospitalCreatinine2019-08-24 06:49:00* Test Item Value Reference Range Interpretation Comments Creatinine (test code = 2160-0) 0.81 0.57-1.11 [facility] HospitalEstimat Glomerular Filtration Rate 2018-11-06 06:49:00* Test Item Value Reference Range Interpretation Comments Estimat Glomerular Filtration Rate (test code = 405691857) > 60 >60 Ranges were taken from the National Kidney Disease Education Program and the Maeve ional [employer] literature.Reference ranges:60 or greater: Kprkpg04-12 ( for 3 consecutive months): Chronic kidney disease 15 or less: Kidney failureHill Country Memorial HospitalGlucose Qhsxu4649-82-50 06:49:00* Test Item Value Reference Range Interpretation Comments Glucose Level (test code = OCW5211) 88 74-118 [facility] HospitalCalcium Rjxkp9260-87-22 06:49:00* Test Item Value Reference Range Interpretation Comments Calcium Level (test code = 08676-5) 9.1 8.4-10.2 [facility] Iebnv8200-78-85 06:49:00* Test Item Value Reference Range Interpretation Comments Sodium Level (test code = 2951-2) 144 136-145 [facility] HospitalPotassium Djjuy5097-17-89 06:49:00* Test Item Value Reference Range Interpretation Comments Potassium Level (test code = 2823-3) 4.5 3.5-5.1 [facility] HospitalChloride Wjeqm5403-92-65 06:49:00* Test Item Value Reference Range Interpretation Comments Chloride Level (test code = 2075-0) 111 98-107 H [facility] HospitalCarbon Dioxide Ywvbq3933-02-60 06:49:00* Test Item Value Reference Range Interpretation Comments Carbon Dioxide Level (test code = 2028-9) 23 22-29 [facility] HospitalAnion Brn3562-25-37 06:49:00* Test Item Value Reference Range Interpretation Comments Anion Gap (test code = 51721-3) 14.5 8-16 [facility] HospitalCreatinine2019-08-24 06:49:00* Test Item Value Reference Range Interpretation Comments Creatinine (test code = 2160-0) 0.81 0.57-1.11 [facility] HospitalEstimat Glomerular Filtration Rate 2018-11-06 06:49:00* Test Item Value Reference Range Interpretation Comments Estimat Glomerular Filtration Rate (test code = 958730387) > 60 >60 Ranges were taken from the National Kidney Disease Education Program and the Maeve ional [employer] literature.Reference ranges:60 or greater: Cxzlxv09-60 ( for 3 consecutive months): Chronic kidney disease 15 or less: Kidney failureHill Country Memorial HospitalGlucose Ilvzy0159-90-38 06:49:00* Test Item Value Reference Range Interpretation Comments Glucose Level (test code = CHE8959) 88 74-118 [facility] HospitalCalcium Haobr1218-93-20 06:49:00* Test Item Value Reference Range Interpretation Comments Calcium Level (test code = 65280-2) 9.1 8.4-10.2 [facility] HospitalWhite Blood Wlllo0708-45-56 06:37:00* Test Item Value Reference Range Interpretation Comments White Blood Count (test code = 6690-2) 5.90 4.8-10.8 [facility] HospitalRed Blood Penbx7156-24-62 06:37:00* Test Item Value Reference Range Interpretation Comments Red Blood Count (test code = 789-8) 3.93 3.6-5.1 [facility] HospitalHemoglobin2019-08-24 06:37:00* Test Item Value Reference Range Interpretation Comments Hemoglobin (test code = 84331-9) 11.7 12.0-16.0 L [facility] HospitalHematocrit2019-08-24 06:37:00* Test Item Value Reference Range Interpretation Comments Hematocrit (test code = 4544-3) 35.9 34.2-44.1 [facility] HospitalMean Corpuscular Ddanxd8302-26-33 06:37:00* Test Item Value Reference Range Interpretation Comments Mean Corpuscular Volume (test code = 787-2) 91.3 81-99 [facility] HospitalMean Corpuscular Bakzobjraa6290-65-82 06:37:00* Test Item Value Reference Range Interpretation Comments Mean Corpuscular Hemoglobin (test code = 785-6) 29.8 28-32 [facility] HospitalMean Corpuscular Hemoglobin Concent 2018-11-06 06:37:00* Test Item Value Reference Range Interpretation Comments Mean Corpuscular Hemoglobin Concent (test code = 786-4) 32.6 31-35 [facility] HospitalRed Cell Distribution Xemmh7978-85-61 06:37:00* Test Item Value Reference Range Interpretation Comments Red Cell Distribution Width (test code = 49576-3) 13.7 11.7 -14.4 [facility] HospitalPlatelet Xorvf7238-89-67 06:37:00* Test Item Value Reference Range Interpretation Comments Platelet Count (test code = 777-3) 245 140-360 [facility] HospitalNeutrophils (%) (Auto)2018-11-06 06:37:00 * Test Item Value Reference Range Interpretation Comments Neutrophils (%) (Auto) (test code = 70722-3) 48.8 38.7-80.0 [facility] HospitalLymphocytes (%) (Auto)2018-11-06 06:37:00 * Test Item Value Reference Range Interpretation Comments Lymphocytes (%) (Auto) (test code = 736-9) 40.0 18.0-39.1 H [facility] HospitalMonocytes (%) (Auto)2018-11-06 06:37:00* Test Item Value Reference Range Interpretation Comments Monocytes (%) (Auto) (test code = 5905-5) 8.5 4.4-11.3 [facility] HospitalEosinophils (%) (Auto)2018-11-06 06:37:00 * Test Item Value Reference Range Interpretation Comments Eosinophils (%) (Auto) (test code = 713-8) 2.2 0.0-6.0 [facility] HospitalBasophils (%) (Auto)2018-11-06 06:37:00* Test Item Value Reference Range Interpretation Comments Basophils (%) (Auto) (test code = 706-2) 0.3 0.0-1.0 [facility] HospitalIM GRANULOCYTES %2018-11-06 06:37:00* Test Item Value Reference Range Interpretation Comments IM GRANULOCYTES % (test code = IM GRANULOCYTES %) 0.2 0.0- 1.0 [facility] HospitalNeutrophils # (Auto)2018-11-06 06:37:00* Test Item Value Reference Range Interpretation Comments Neutrophils # (Auto) (test code = 751-8) 2.9 2.1-6.9 [facility] HospitalLymphocytes # (Auto)2018-11-06 06:37:00* Test Item Value Reference Range Interpretation Comments Lymphocytes # (Auto) (test code = 96787-3) 2.4 1.0-3.2 [facility] HospitalMonocytes # (Auto)2018-11-06 06:37:00* Test Item Value Reference Range Interpretation Comments Monocytes # (Auto) (test code = 742-7) 0.5 0.2-0.8 [facility] HospitalEosinophils # (Auto)2018-11-06 06:37:00* Test Item Value Reference Range Interpretation Comments Eosinophils # (Auto) (test code = 711-2) 0.1 0.0-0.4 [facility] HospitalBasophils # (Auto)2018-11-06 06:37:00* Test Item Value Reference Range Interpretation Comments Basophils # (Auto) (test code = 704-7) 0.0 0.0-0.1 [facility] HospitalAbsolute Immature Granulocyte (auto 2018-11-06 06:37:00* Test Item Value Reference Range Interpretation Comments Absolute Immature Granulocyte (auto (zully t code = Absolute Immature Granulocyte (auto) 0.01 0-0.1 [facility] HospitalWhite Blood Vbvak4352-79-96 06:37:00* Test Item Value Reference Range Interpretation Comments White Blood Count (test code = 6690-2) 5.90 4.8-10.8 [facility] HospitalRed Blood Cgdoi9489-76-99 06:37:00* Test Item Value Reference Range Interpretation Comments Red Blood Count (test code = 789-8) 3.93 3.6-5.1 [facility] HospitalHemoglobin2019-08-24 06:37:00* Test Item Value Reference Range Interpretation Comments Hemoglobin (test code = 34590-3) 11.7 12.0-16.0 L [facility] HospitalHematocrit2019-08-24 06:37:00* Test Item Value Reference Range Interpretation Comments Hematocrit (test code = 4544-3) 35.9 34.2-44.1 [facility] HospitalMean Corpuscular Febjxj4236-09-02 06:37:00* Test Item Value Reference Range Interpretation Comments Mean Corpuscular Volume (test code = 787-2) 91.3 81-99 [facility] HospitalMean Corpuscular Plmpslerot8863-99-35 06:37:00* Test Item Value Reference Range Interpretation Comments Mean Corpuscular Hemoglobin (test code = 785-6) 29.8 28-32 [facility] HospitalMean Corpuscular Hemoglobin Concent 2018-11-06 06:37:00* Test Item Value Reference Range Interpretation Comments Mean Corpuscular Hemoglobin Concent (test code = 786-4) 32.6 31-35 [facility] HospitalRed Cell Distribution Hinsc5770-18-94 06:37:00* Test Item Value Reference Range Interpretation Comments Red Cell Distribution Width (test code = 50134-2) 13.7 11.7 -14.4 [facility] HospitalPlatelet Iowdi5804-81-62 06:37:00* Test Item Value Reference Range Interpretation Comments Platelet Count (test code = 777-3) 245 140-360 [facility] HospitalNeutrophils (%) (Auto)2018-11-06 06:37:00 * Test Item Value Reference Range Interpretation Comments Neutrophils (%) (Auto) (test code = 42908-0) 48.8 38.7-80.0 [facility] HospitalLymphocytes (%) (Auto)2018-11-06 06:37:00 * Test Item Value Reference Range Interpretation Comments Lymphocytes (%) (Auto) (test code = 736-9) 40.0 18.0-39.1 H [facility] HospitalMonocytes (%) (Auto)2018-11-06 06:37:00* Test Item Value Reference Range Interpretation Comments Monocytes (%) (Auto) (test code = 5905-5) 8.5 4.4-11.3 [facility] HospitalEosinophils (%) (Auto)2018-11-06 06:37:00 * Test Item Value Reference Range Interpretation Comments Eosinophils (%) (Auto) (test code = 713-8) 2.2 0.0-6.0 [facility] HospitalBasophils (%) (Auto)2018-11-06 06:37:00* Test Item Value Reference Range Interpretation Comments Basophils (%) (Auto) (test code = 706-2) 0.3 0.0-1.0 [facility] HospitalIM GRANULOCYTES %2018-11-06 06:37:00* Test Item Value Reference Range Interpretation Comments IM GRANULOCYTES % (test code = IM GRANULOCYTES %) 0.2 0.0- 1.0 [facility] HospitalNeutrophils # (Auto)2018-11-06 06:37:00* Test Item Value Reference Range Interpretation Comments Neutrophils # (Auto) (test code = 751-8) 2.9 2.1-6.9 [facility] HospitalLymphocytes # (Auto)2018-11-06 06:37:00* Test Item Value Reference Range Interpretation Comments Lymphocytes # (Auto) (test code = 47316-2) 2.4 1.0-3.2 [facility] HospitalMonocytes # (Auto)2018-11-06 06:37:00* Test Item Value Reference Range Interpretation Comments Monocytes # (Auto) (test code = 742-7) 0.5 0.2-0.8 [facility] HospitalEosinophils # (Auto)2018-11-06 06:37:00* Test Item Value Reference Range Interpretation Comments Eosinophils # (Auto) (test code = 711-2) 0.1 0.0-0.4 [facility] HospitalBasophils # (Auto)2018-11-06 06:37:00* Test Item Value Reference Range Interpretation Comments Basophils # (Auto) (test code = 704-7) 0.0 0.0-0.1 [facility] HospitalAbsolute Immature Granulocyte (auto 2018-11-06 06:37:00* Test Item Value Reference Range Interpretation Comments Absolute Immature Granulocyte (auto (zully t code = Absolute Immature Granulocyte (auto) 0.01 0-0.1 [facility] HospitalBlood leukocytes automated count (number/volume)2018-11-06 06:23:00* Test Item Value Reference Range Interpretation Comments White Blood Count (test code = 6690-2) 5.90 4.8-10.8 [facility] HospitalBlood erythrocytes automated count (number/volume)2018-11-06 06:23:00* Test Item Value Reference Range Interpretation Comments Red Blood Count (test code = 789-8) 3.93 3.6-5.1 [facility] (moles/volume)2018-11-06 06:23:00* Test Item Value Reference Range Interpretation Comments Hemoglobin (test code = 10976-2) 11.7 12.0-16.0 [facility] HospitalAutatrium healthed blood hematocrit (volume fraction)2018-11-06 06:23:00* Test Item Value Reference Range Interpretation Comments Hematocrit (test code = 4544-3) 35.9 34.2-44.1 [facility] HospitalAutomated erythrocyte mean corpuscular tmxeur7278-33-05 06:23:00* Test Item Value Reference Range Interpretation Comments Mean Corpuscular Volume (test code = 787-2) 91.3 81-99 [facility] HospitalAutomated erythrocyte mean corpuscular hemoglobin (mass per erythrocyte)2018-11-06 06:23:00* Test Item Value Reference Range Interpretation Comments Mean Corpuscular Hemoglobin (test code = 785-6) 29.8 28-32 [facility] HospitalAutomated erythrocyte mean corpuscular hemoglobin concentration measurement (mass/volume)2018-11-06 06:23:00* Test Item Value Reference Range Interpretation Comments Mean Corpuscular Hemoglobin Concent (test code = 786-4) 32.6 31-35 [facility] HospitalRDW StkCz-Tbw7321-40-24 06:23:00* Test Item Value Reference Range Interpretation Comments Red Cell Distribution Width (test code = 17084-9) 13.7 11.7 -14.4 [facility] HospitalAutomated blood platelet count (count/volume)2018-11-06 06:23:00* Test Item Value Reference Range Interpretation Comments Platelet Count (test code = 777-3) 245 140-360 [facility] HospitalAutomated blood segmented neutrophil count as percentage of total zahogowdch1122-87-39 06:23:00* Test Item Value Reference Range Interpretation Comments Neutrophils (%) (Auto) (test code = 18510-0) 48.8 38.7-80.0 [facility] HospitalAutomated blood lymphocyte count as percentage ot total rkvljhavar6172-48-19 06:23:00* Test Item Value Reference Range Interpretation Comments Lymphocytes (%) (Auto) (test code = 736-9) 40.0 18.0-39.1 [facility] HospitalAutomated blood monocyte count as percentage of total jsijvmspja3174-23-91 06:23:00* Test Item Value Reference Range Interpretation Comments Monocytes (%) (Auto) (test code = 5905-5) 8.5 4.4-11.3 [facility] HospitalAutomated blood eosinophil count as percentage of total qzygjyjajp5637-98-59 06:23:00* Test Item Value Reference Range Interpretation Comments Eosinophils (%) (Auto) (test code = 713-8) 2.2 0.0-6.0 [facility] HospitalAutomated blood basophil count as percentage of total stwpgznjsn3892-27-13 06:23:00* Test Item Value Reference Range Interpretation Comments Basophils (%) (Auto) (test code = 706-2) 0.3 0.0-1.0 [facility] HospitalFluoroscopic procedure less than one hour arasrrlf3450-97-99 06:23:00* Test Item Value Reference Range Interpretation Comments IM GRANULOCYTES % (test code = IM GRANULOCYTES %) 0.2 0.0- 1.0 [facility] HospitalAutomated blood neutrophil count 2018-11-06 06:23:00* Test Item Value Reference Range Interpretation Comments Neutrophils # (Auto) (test code = 751-8) 2.9 2.1-6.9 [facility] HospitalBlood lymphocytes count (number/volume) 2018-11-06 06:23:00* Test Item Value Reference Range Interpretation Comments Lymphocytes # (Auto) (test code = 06252-4) 2.4 1.0-3.2 [facility] HospitalBlood monocytes automated count (number/volume)2018-11-06 06:23:00* Test Item Value Reference Range Interpretation Comments Monocytes # (Auto) (test code = 742-7) 0.5 0.2-0.8 [facility] HospitalAutomated blood eosinophil count 2018-11-06 06:23:00* Test Item Value Reference Range Interpretation Comments Eosinophils # (Auto) (test code = 711-2) 0.1 0.0-0.4 [facility] HospitalAutomated blood basophil count (count/volume)2018-11-06 06:23:00* Test Item Value Reference Range Interpretation Comments Basophils # (Auto) (test code = 704-7) 0.0 0.0-0.1 [facility] HospitalFluoroscopic procedure less than one hour gvaovcqj8290-47-05 06:23:00* Test Item Value Reference Range Interpretation Comments Absolute Immature Granulocyte (auto (zully t code = Absolute Immature Granulocyte (auto) 0.01 0-0.1 [facility] sodium measurement (moles/volume)2018-11-06 06:23:00* Test Item Value Reference Range Interpretation Comments Sodium Level (test code = 2951-2) 144 136-145 [facility] Childrener[facility] or plasma potassium measurement (moles/volume)2018-11-06 06:23:00* Test Item Value Reference Range Interpretation Comments Potassium Level (test code = 2823-3) 4.5 3.5-5.1 [facility] Childrener[facility] or plasma chloride measurement (moles/volume)2018-11-06 06:23:00* Test Item Value Reference Range Interpretation Comments Chloride Level (test code = 2075-0) 111 98-107 [facility] Childrenerum or plasma carbon dioxide, total measurement (moles/volume)2018-11-06 06:23:00* Test Item Value Reference Range Interpretation Comments Carbon Dioxide Level (test code = 2028-9) 23 22-29 [facility] Childrenerum or plasma anion vnl3057-85-13 06:23:00* Test Item Value Reference Range Interpretation Comments Anion Gap (test code = 24110-3) 14.5 8-16 [facility] Childrener[facility] or plasma urea nitrogen measurement (mass/volume)2018-11-06 06:23:00* Test Item Value Reference Range Interpretation Comments Blood Urea Nitrogen (test code = 3094-0) 18 7-26 [facility] Childrener[facility] or plasma creatinine measurement (mass/volume)2018-11-06 06:23:00* Test Item Value Reference Range Interpretation Comments Creatinine (test code = 2160-0) 0.81 0.57-1.11 [facility] Childrener[facility] or plasma urea nitrogen/creatinine mass nekop0865-92-53 06:23:00* Test Item Value Reference Range Interpretation Comments BUN/Creatinine Ratio (test code = 3097-3) 21 - [facility] HospitalEstimated glomerular filtration rate (GFR) lcyedpqmarwtf6760-97-49 06:23:00* Test Item Value Reference Range Interpretation Comments Estimat Glomerular Filtration Rate (test code = 509422005) > 60 >60 Ranges were taken from the National Kidney Disease Education Program and the [facility] [employer] literature.Reference ranges:60 or greater: Yvuqei86-66 ( for 3 consecutive months): Chronic kidney disease 15 or less: Kidney failureHill Country Memorial HospitalGlucose prldrritjjj0078-05-43 06:23:00* Test Item Value Reference Range Interpretation Comments Glucose Level (test code = ETM6224) 88 74-118 [facility] Childrener[facility] or plasma calcium measurement (mass/volume)2018-11-06 06:23:00* Test Item Value Reference Range Interpretation Comments Calcium Level (test code = 96441-9) 9.1 8.4-10.2 [facility] HospitalPhosphorus joigfogdbrz5725-26-36 06:23:00 * Test Item Value Reference Range Interpretation Comments Phosphorus Level (test code = NOT7452) 3.1 2.3-4.7 [facility] Childrener[facility] plasma magnesium measurement (mass/volume)2018-11-06 06:23:00* Test Item Value Reference Range Interpretation Comments Magnesium Level (test code = 84042-8) 1.6 1.3-2.1 [facility] JBXL0073-78-59 10:45:00 [facility] [address] [address] Patient Name: SERVANDO GIANG MR #: [id number] : 1950 Age/Sex: 68/F Req #: [id number] Adm Physician: POOL SIMMONS MD Ordered by: POOL SIMMONS MD Report #: [id number] Location: [facility] Room/Bed: [place] [address] Procedure: [id number] US /US RENAL RETROPERITONEAL COMP Exam Date: [...] No renal mass identified. Signed by: Ayaz Hansno MD on 11/05/2018 10:47 AM Dictated By: AYAZ HANSON MD 46 Transcribed By: SUNSHINE on 11/05/181046 COPY TO: POOL SIMMONS MD Triglycerides Xafsh5974-76-51 07:24:00* Test Item Value Reference Range Interpretation Comments Triglycerides Level (test code = 2571-8) 155 0-149 H [facility] HospitalCholesterol Zamdn0709-40-98 07:24:00* Test Item Value Reference Range Interpretation Comments Cholesterol Level (test code = 2093-3) 113 0-199 Less than 200 mg/dL Low Pjzx297 - 239 mg/dL Borderline Hjgu755 m g/dl and greater High Risk [facility] HospitalLDL Idifrbdmqei3942-83-77 07:24:00* Test Item Value Reference Range Interpretation Comments LDL Cholesterol (test code = 2089-1) 46 60-130 L [facility] Lckzsykmrjc9751-46-20 07:24:00* Test Item Value Reference Range Interpretation Comments HDL Cholesterol (test code = 2085-9) 36 40-60 L [facility] HospitalCholesterol/HDL Uhwwp0672-37-20 07:24:00 * Test Item Value Reference Range Interpretation Comments Cholesterol/HDL Ratio (test code = 9830-1) 3.1 3.0-3.6 [facility] HospitalTriglycerides Knfup4013-16-44 07:24:00* Test Item Value Reference Range Interpretation Comments Triglycerides Level (test code = 2571-8) 155 0-149 H [facility] HospitalCholesterol Suvxo0000-75-23 07:24:00* Test Item Value Reference Range Interpretation Comments Cholesterol Level (test code = 2093-3) 113 0-199 Less than 200 mg/dL Low Tnat883 - 239 mg/dL Borderline Ymun303 m g/dl and greater High Risk [facility] HospitalLDL Azyrkvzrbfm4393-26-20 07:24:00* Test Item Value Reference Range Interpretation Comments LDL Cholesterol (test code = 2089-1) 46 60-130 L [facility] Trkulqcbfds1757-64-24 07:24:00* Test Item Value Reference Range Interpretation Comments HDL Cholesterol (test code = 2085-9) 36 40-60 L [facility] HospitalCholesterol/HDL Ncwrs9368-13-01 07:24:00 * Test Item Value Reference Range Interpretation Comments Cholesterol/HDL Ratio (test code = 9830-1) 3.1 3.0-3.6 [facility] HospitalHemoglobin A1c Xtenppo7690-19-79 07:19:00 * Test Item Value Reference Range Interpretation Comments Hemoglobin A1c Percent (test code = Hemoglobin A1c Percent) 5.7 4.0-7.0 [facility] HospitalHemoglobin A1c Bccnbsn4428-53-76 07:19:00 * Test Item Value Reference Range Interpretation Comments Hemoglobin A1c Percent (test code = Hemoglobin A1c Percent) 5.7 4.0-7.0 [facility] HospitalFluoroscopic procedure less than one hour somieuuq1183-25-13 05:50:00* Test Item Value Reference Range Interpretation Comments Hemoglobin A1c Percent (test code = Hemoglobin A1c Percent) 5.7 4.0-7.0 [facility] Childrener[facility] or plasma triglyceride measurement (mass/volume)2018-11-05 05:50:00* Test Item Value Reference Range Interpretation Comments Triglycerides Level (test code = 2571-8) 155 0-149 [facility] Childrenerum or plasma cholesterol measurement (mass/volume)2018-11-05 05:50:00* Test Item Value Reference Range Interpretation Comments Cholesterol Level (test code = 2093-3) 113 0-199 Less than 200 mg/dL Low Xcbo525 - 239 mg/dL Borderline Rsju688 m g/dl and greater High Risk [facility]er[facility] plasma cholesterol in LDL measurement (mass/volume) 2018-11-05 05:50:00* Test Item Value Reference Range Interpretation Comments LDL Cholesterol (test code = 2089-1) 46 60-130 [facility] Childrener[facility] or plasma cholesterol in HDL measurement (mass/volume)2018-11-05 05:50:00* Test Item Value Reference Range Interpretation Comments HDL Cholesterol (test code = 2085-9) 36 40-60 [facility] Childrener[facility] or plasma total cholesterol/cholesterol in HDL mass vttlj7949-44-99 05:50:00* Test Item Value Reference Range Interpretation Comments Cholesterol/HDL Ratio (test code = 9830-1) 3.1 3.0-3.6 [facility] CenterCT [facility]PEL WO SNUEIFHB-AJVX0195-83-22 21:04:00 [facility] [address] [address] Patient Name: SERVANDO GIANG MR #: [id number] : 1950 Age/Sex: 68/F Req #: [id number] Adm Physician: Ordered by: SAE NORWOOD MD Report #: [id number] Location: [facility] Room/Bed: Procedure: [id number] H OPD/CT ABD/PEL WO CONTRAST-HOPD Exam Date: [...] COPY TO: SAE NORWOOD MD URINE AND NAVRC5968-67-01 [facility]:002[facility] XYCWL8974-67-33 00:32:00Negative (09/14/15 7:32 PM)[facility] LYRIK0487-30-15 00:32:00Large *ABN*(09/14/15 7:32 PM)[facility] HVLNO9085-68-84 00:32:0011[facility] STOOL 2015-09-15 00:32:007[facility] DARUP9437-79-67 00:32:00Slight *ABN*(09/14/15 7:32 PM)[facility] JILBU8918-96-48 00:32:001.016 [facility] OKLQJ4444-75-21 00:32:00Yellow *NA*(09/14/15 7:32 PM) [facility] GSKJL1879-76-72 00:32:002.0[facility] YSSJY2735-82-86 00:32:00Negative *NA*(09/14/15 7:32 PM)[facility] DVGVD0953-16-73 00:32:00Negative (09/14/15 7:32 PM)[facility] STOOL 2015-09-15 00:32:005.0[facility]annCARDIAC YPSQBVB3821-92-99 22:35:001.5 [facility]annCARD[facility]AC CXEMWWP1490-02-73 22:35:00<0.02[facility]annCARDIAC BYABALD4397-84-23 22:35:0096[facility]annCARDIAC HNCUOWX3860-50-69 22:35:00 1.4[facility] HermannCHEM MYSOB7202-21-05 22:35:0025[facility]annCHEM PANEL 2015-09-14 22:35:0019[facility] HermannCHEM WBYBQ6030-48-43 22:35:003.4[facility] HermannCHEM QHNJK8002-64-06 22:35:0012.5[facility] HermannCHEM WIUAT9046-42-37 22:35:0025[facility] HermannCHEM OJRKA2677-71-73 22:35:000.4[facility]annCHEM DFXTA1845-17-00 22:35:001.1[facility]annCHEM NMHQK3822-36-94 22:35:0036 [facility]annCHEM PPXHE9118-39-02 22:35:003.6[facility]annCHEM PANEL 2015-09-14 22:35:74013Yaueovyt HermannCHEM LXROS3379-55-41 22:35:007.0[facility] HermannCHEM OXJYE6110-98-00 22:35:0037[facility] HermannCHEM JHCMO2238-67-26 22:35:003.5[facility] HermannCHEM UUPLK8613-05-61 22:35:90448Lzziaydx HermannCHEM XGUMB4068-23-81 22:35:001.50[facility]annCHEM BJXIY7580-20-69 22:35:98199 [facility]annCHEM ALRDT3315-28-50 22:35:0025[facility] HermannCHEM PANEL 2015-09-14 22:35:008.6[facility] HermannCHEM SGUPP4437-35-18 22:35:83668Pksepnbm JaqskzoXZNLABQSJV6956-48-00 22:35:000.1[facility] ByqyguuQHOERQCSID7532-27-89 22:35:002.8[facility] VxjkwukDBVHVDJRHO1109-96-23 22:35:000.7[facility] Miguel LTUPHTKUUF8092-84-17 22:35:005.7[facility] RotcsgiWSPGGHILOX6936-65-60 22:35:000.4 Memorial RbnoeznJJDXXZTPSR4953-92-20 22:35:007.9[facility] HermannHEMATOLOGY 2015-09-14 22:35:001.3[facility] TzvwggfENQAYHKWVD0588-44-10 22:35:0030.0[facility] KqhbzerHBXPPQBCPM4234-22-00 22:35:0060.4[facility] JhpktpgXNAXNKGAUV6842-69-49 22:35:00* Test Item Value Reference Range Interpretation Comments PTT (test code = PTT) 30.3 s 22.9-35.8 Memorial PesegrdPZJBYDQLSB6391-06-62 22:35:009.3[facility] HermannHEMATOLOGY 2015-09-14 22:35:0088.0[facility] DasahexPZCCNFPTET0073-86-19 22:35:00* Test Item Value Reference Range Interpretation Comments MCH (test code = MCH) 29.1 pg 27.0-31.0 [facility] OqiwzayTCQHLREMVP4549-74-90 22:35:99916Ggiazapk HermannHEMATOLOGY 2015-09-14 22:35:0033.1[facility] FwfytlcNZWPPEVBLL3007-23-07 22:35:0014.4[facility] ZeqzgumWLCWTTIXBZ5219-03-41 22:35:009.4[facility] CjeflasNRZWRSUWWO4759-03-90 22:35:0013.4[facility] WqrmeguEHUXWLPVXS6583-22-54 22:35:0040.5[facility] FYGSKHMRLV6608-41-49 22:35:004.60[facility] EtiowqaKUSLSMEMZY0423-08-90 22:35:00* Test Item Value Reference Range Interpretation Comments PT (test code = PT) 14.6 s 12.0-14.7 [facility] NpvqebcWNJHPJKXAQ4151-85-49 22:35:001.11[facility]
== END 2019-10-20 14:52 | disposition home or self-care (01) ==
LOC: FSED 14:30
DX: M54.12 Radiculopathy, cervical region (principal); I10 Essential (primary) hypertension; E11.9 Type 2 diabetes mellitus without complications; E78.5 Hyperlipidemia, unspecified; I25.10 Atherosclerotic heart disease of native coronary artery without angina pectoris; E03.9 Hypothyroidism, unspecified; F41.9 Anxiety disorder, unspecified; K21.9 Gastro-esophageal reflux disease without esophagitis; Z95.1 Presence of aortocoronary bypass graft
CPT/HCPCS: 96372; 99283; J1100

== ENCOUNTER 2021-08-06 19:09 | Emergency (ER) | payer MEDICARE ==
[~2021-08-06] VITALS: Ht 154.9 cm; Wt 78.0 kg
[~2021-08-06 19:09] MED LIST changes: +MICARDIS HCT 41 EACH
[2021-08-06] MEDS ORDERED: DEXAMETHASONE SOD PHOS INJ 4 MG/ML SDV IM ONE (19:45)
[2021-08-06] MEDS ORDERED: CYCLOBENZAPRINE HCL 10 MG TAB PO ONE (19:45)
[2021-08-06] MEDS ORDERED: HYDROCODONE/APAP 5MG-325MG TAB PO ONE (19:45)
[2021-08-06] MEDS ORDERED: DEXAMETHASONE SOD PHOS INJ 4 MG/ML SDV ONE (20:04)
[2021-08-06] MEDS ORDERED: KETOROLAC TROME10 MG PO (20:05)
[2021-08-06] MEDS ORDERED: CYCLOBENZAPRINE5 MG PO (20:05)
[2021-08-06] MEDS ORDERED: PREDNISONE20 MG PO (20:05)
== END 2021-08-06 21:17 | disposition home or self-care (01) ==
LOC: FSED 19:45
DX: M54.2 Cervicalgia (principal); M54.12 Radiculopathy, cervical region; I10 Essential (primary) hypertension; E11.9 Type 2 diabetes mellitus without complications; E78.5 Hyperlipidemia, unspecified; K21.9 Gastro-esophageal reflux disease without esophagitis; E03.9 Hypothyroidism, unspecified; I25.10 Atherosclerotic heart disease of native coronary artery without angina pectoris; F41.9 Anxiety disorder, unspecified; F17.210 Nicotine dependence, cigarettes, uncomplicated
CPT/HCPCS: 72125; 99283; J1100